=== PATIENT | female | born 1970 | race Caucasian/White ===

== ENCOUNTER 2019-11-12 19:44 | Emergency (ER) | payer BC, SELFPAY ==
--- NOTE | 2019-11-12 20:14 | ED_ITS ---
[facility] [place] Clinical Impression: Exposure to COVID-19 virus Disposition: Home, Self-Care Condition on Discharge: Good Instructions: Preventing the Spread of Coronavirus Discharge Instructions Additional Instructions: You have been tested for COVID19. These results typically take around 24 hours. Please isolate yourself as if you are positive until results are back. Referrals: Santiago Copeland DO [Primary Care Provider] - Time of Disposition: 20:24 Medical Decision Making - Josh Inquiry Pt receiving controlled substance: No [facility] [place] - General Stated complaint: Covid testing Time Seen by Provider: 11/12/19 20:14 - History of Present Illness Provider Complaint: Father has COVID19. She needs to be tested. She denies fever, ear pain, sore throat, congestion, cough, SOA, nausea, vomiting or diarrhea. Onset (ago): day(s) (1) Relieving factors: none Exacerbating factors: none Associated symptoms: denies other symptoms Treatments prior to arrival: none [facility] History - Hepatitis A Screen Attestation statement:: This patient has been screened for Hepatitis A risk factors. I have reviewed the patient's past medical history: Yes ROS Obtained: Yes All systems reviewed & no additional complaints - Constitutional Constitutional: Denies body ache, Denies chills, Denies fatigue, Denies fever(s) , Denies lethargy, Denies malaise - Eyes Eyes: Denies eye discharge - ENT Ears, Nose, Mouth, and Throat: Denies dizziness, Denies otalgia, Denies sinus pressure, Denies sore throat - Respiratory Respiratory: No cough, No dyspnea - Gastrointestinal Gastrointestingal: Denies: loose stools, vomiting Physical Exam - General General appearance: alert, in no apparent distress - Head Head exam: atraumatic, normocephalic - Eye Eye exam: Present: PERRL - ENT ENT exam: Present: normal oropharynx, TM's normal bilaterally - Neck Neck exam: Absent: lymphadenopathy - Chest Chest inspection: Present: normal inspection, symmetric chest wall rise - Respiratory Respiratory exam: Present: normal lung sounds bilaterally - Cardiovascular Cardiovascular exam: Present: regular rate, normal rhythm - Abdominal Exam Abdominal exam: Present: soft - Neurological Exam Neurological exam: Present: alert, oriented X3 - Psychiatric Psychiatric exam: Present: normal affect, normal mood - Skin Skin exam: Present: warm, dry, intact
[2019-11-12 20:17] VITALS: BMI 58.7
[2019-11-12 20:26] VITALS: BP 170/81; PULSE 67; RESP 16; TEMP 36.7; O2SAT 98; BMI 60.2
[2019-11-12 20:47] VITALS: BP 170/81; PULSE 67; RESP 16; TEMP 36.7; O2SAT 98
== END 2019-11-12 20:58 | disposition home or self-care (01) ==
PROVIDERS: Emergency Provider Physician Assistant; PCP Family Medicine
DX: Z20.828 Contact with and (suspected) exposure to other viral communicable diseases (principal)
CPT/HCPCS: 99201; U0003

== ENCOUNTER 2023-10-14 15:32 | Emergency (ER) | payer BC, SELFPAY ==
[2023-10-14 15:40] VITALS: BP 131/80; PULSE 75; RESP 18; TEMP 37.2; O2SAT 97; BMI 45.4
[2023-10-14 16:00] VITALS: BP 134/82; BP 146/92; PULSE 72; PULSE 87
--- NOTE | 2023-10-14 16:16 | EXP.UTC ---
Discharge Plan Disposition Patient Disposition: Home, Self-Care Condition: Good Prescriptions Prescriptions: New amoxicillin 875 mg tablet 875 mg PO Q12H Qty: 20 0RF meclizine 25 mg tablet 25 mg PO QID PRN (Reason: dizziness) Qty: 30 0RF No Action lamotrigine 200 mg tablet 200 mg PO BID Patient Comments: TAKE 1 TABLET BY MOUTH TWICE DAILY oxcarbazepine 300 mg tablet 300 mg PO DAILY fluoxetine 20 mg capsule 20 mg PO BID Patient Comments: TAKE 1 CAPSULE BY MOUTH TWICE DAILY amitriptyline 100 mg tablet 100 mg PO DAILY Patient Comments: TAKE 1 TABLET BY MOUTH ONCE DAILY rosuvastatin 20 mg tablet 20 mg PO DAILY Patient Comments: TAKE 1 TABLET BY MOUTH ONCE DAILY AT BEDTIME Vivitrol 380 mg suspension,extended rel recon See Rx Instructions .ROUTE .COMPLEX Patient Comments: Inject 380 mg every 4 weeks by intramuscular route for 28 days. Rx Instructions: Inject 380 mg every 4 weeks by intramuscular route for 28 days. Skyrizi 360 mg/2.4 mL (150 mg/mL) wearable injector See Rx Instructions .ROUTE .COMPLEX Rx Instructions: see rx instructions rizatriptan 10 mg tablet See Rx Instructions .ROUTE .COMPLEX Rx Instructions: see rx instruction Referrals Follow up/Referrals: Liss Chou APRN [Primary Care Provider] - See instructions Activity Restrictions/Add. Instructions Additional Instructions/Restrictions: Drink plenty of fluids. Take tylenol or ibuprofen for pain or fever. Take the medications as directed. The meclizine (antivert) will make you drowsy, so don't drive or operate heavy machinery after taking it. Follow up with your regular doctor. GO TO THE ER FOR ANY WORSENING SYMPTOMS Clinical Impressions Clinical Impression: Benign paroxysmal positional vertigo Instructions Patient Instructions: Benign Paroxysmal Positional Vertigo, Meclizine, Amoxicillin, How to Perform Rashid Maneuver Discharge ED Provider: Ac Vasquez [facility] [place] General Stated complaint: Vertigo Mode of Arrival: Ambulatory Source of Information: Patient Limitations: No Limitations Time Seen by Provider: 10/14/23 15:58 Description of Symptoms (Recalled from Triage Doc. by RN): Pt's symptoms are she has been dizzy since 10/12/2023. HEENT Symptoms (Recalled from RN notes): Yes Resp Symptoms (Recalled from RN notes): No Skin Symptoms (Recalled from RN notes): No MS Symptoms (Recalled from RN notes): No Functional Status (Recalled from RN notes): n/a History of Present Illness Provider Complaint: She states that for the past 2 days she has had intermittent dizziness that is triggered by certain turns of her head. She has also had bilateral ear pain and pressure. Related Data Home Medications Medication Instructions Recorded Confirmed amitriptyline 100 mg tablet 100 mg PO DAILY 10/14/23 10/14/23 fluoxetine 20 mg capsule 20 mg PO BID 10/14/23 10/14/23 lamotrigine 200 mg tablet 200 mg PO BID 10/14/23 10/14/23 naltrexone microspheres 380 mg See Rx Instructions .Route .COMPLEX 10/14/23 10/14/23 intramuscular suspension,extended release (Vivitrol) oxcarbazepine 300 mg tablet 300 mg PO DAILY 10/14/23 10/14/23 risankizumab-rzaa 360 mg/2.4 mL See Rx Instructions .Route .COMPLEX 10/14/23 10/14/23 (150 mg/mL) subcut wearable injector (Skyrizi) rizatriptan 10 mg tablet See Rx Instructions .Route .COMPLEX 10/14/23 10/14/23 rosuvastatin 20 mg tablet 20 mg PO DAILY 10/14/23 10/14/23 Previous Rx's Medication Instructions Recorded amoxicillin 875 mg tablet 875 mg PO Q12H #20 tabs 10/14/23 meclizine 25 mg tablet 25 mg PO QID PRN dizziness #30 tabs 10/14/23 Allergies Allergy/AdvReac Type Severity Reaction Status Date / Time sulfamethoxazole Allergy Verified 10/14/23 15:50 [From Bactrim] trimethoprim [From Bactrim] Allergy Verified 10/14/23 15:50 Worker's Comp Is this a Worker's Comp case?: No [facility] Disclaimer: The information contained in this section may have been updated after the patient was seen, as this information can be updated by other users. Social History Smoking Status: Never smoker alcohol intake: never current occupational status: other Travel in the last 8 weeks: None ROS Obtained: Yes All systems reviewed & no additional complaints except as documented Constitutional Constitutional: Denies chills, Reports fever(s) and Reports poor appetite Eyes Eyes: Denies eye discharge ENT Ears, Nose, Mouth, and Throat: Reports dizziness, Denies ear discharge, Reports otalgia, Denies hearing loss, Denies sinus pain and Reports sore throat Cardiovascular Cardiovascular: Denies chest pain and Denies dyspnea Respiratory Respiratory: Denies chest congestion, Reports cough and Denies dyspnea Gastrointestinal Gastrointestingal: Denies abdominal pain, diarrhea, nausea or vomiting Musculoskeletal Musculoskeletal: Denies arthralgias Integumentary/Breasts Skin/Breast: Denies rash Neurologic Neurologic: Reports dizziness Physical Exam General General appearance: alert and in no apparent distress Head Head exam: atraumatic, normocephalic and normal inspection Eye Eye exam: Present normal appearance; Absent PERRL or EOMI ENT ENT exam: Present mucous membranes moist and normal external ear exam Expanded ENT Exam TM/Canal exam: Bilateral TM: erythema, bulging and effusion Nose exam: Absent sinus tenderness Nasal speculum exam: Bilateral: normal Mouth exam: Present normal external inspection and other; Absent drooling Teeth exam: Present normal inspection Throat exam: Present tonsillar erythema and tonsillomegaly Neck Neck exam: Present normal inspection, full ROM and trachea midline; Absent tenderness, meningismus or lymphadenopathy Chest Chest inspection: Present normal inspection and symmetric chest wall rise; Absent tenderness Respiratory Respiratory exam: Present normal lung sounds bilaterally; Absent respiratory distress, wheezes or stridor Cardiovascular Cardiovascular exam: Present regular rate, normal rhythm and normal heart sounds; Absent tachycardia or irregular rhythm Abdominal Exam Abdominal exam: Present soft and normal bowel sounds; Absent distention, tenderness, guarding, rebound or rigidity Extremities Exam Extremities exam: Present normal inspection and normal capillary refill; Absent tenderness, joint swelling or calf tenderness Back Exam Back exam: Present normal inspection and full ROM; Absent tenderness, CVA tenderness (R) or CVA tenderness (L) Neurological Exam Neurological exam: Present alert, oriented X3, CN II-XII intact, normal gait and reflexes normal; Absent motor sensory deficit Psychiatric Psychiatric exam: Present normal affect and normal mood Skin Skin exam: Present warm, dry, intact and normal color Lymphatic Lymphatic Findings: no adenopathy Medical Decision Making Medical Records Medical records reviewed: No I reviewed the patient's medical records. Josh Inquiry Pt receiving controlled substance: No Vital Signs: 10/14/23 15:40 10/14/23 16:00 Temperature 99.0 F Temperature Source Oral Pulse Rate [Orthostatic Sitting Right Radial] 72 Pulse Rate [Orthostatic Standing Right Radial] 87 Pulse Rate [Right Radial] 75 Respiratory Rate 18 Blood Pressure [Orthostatic Sitting Right Arm] 134/82 Blood Pressure [Orthostatic Standing Right Arm] 146/92 H Blood Pressure [Right Arm] 131/80 Blood Pressure Mean [Right Arm] 97 Blood Pressure Source [Right Arm] Automatic Cuff Blood Pressure Position [Right Arm] Sitting 02 Sat by Pulse Oximetry 97 Oxygen Delivery Method Room Air
[2023-10-14 16:42] VITALS: BP 131/80; PULSE 75; RESP 18; TEMP 37.2; O2SAT 97
== END 2023-10-14 16:42 | disposition home or self-care (01) ==
PROVIDERS: Emergency Provider Nurse Practitioner Family; PCP Family Medicine
DX: H81.10 Benign paroxysmal vertigo, unspecified ear (principal); H92.03 Otalgia, bilateral
CPT/HCPCS: 99204; 99212; G0463

== ENCOUNTER 2024-09-07 00:37 | Emergency (ER) | payer BC, SELFPAY ==
[2024-09-07] VITALS (7 sets, daily range): BP systolic 134–176; BP diastolic 59–88; PULSE 83–95; RESP 16; TEMP 36.6–36.7; O2SAT 95–100; BMI 34.4
--- OUTSIDE RECORDS SUMMARY | 2024-09-07 00:47 | XMS_ITS | Data Portability ---
Author Organization [facility] [place] Phelps [place] CLOSED Address [address] [place] [address] Care Team Providers Care Seo Manager Name Role Phone RADHA SIMPSON Educational Aide VEDA ARRIETA Cottage Attendant MAYO MERCHANT Soa Integration Architect YUKI NEWTON Primary Care Provider RADHA DAVENPORT Primary Care Provider [phone] Assessment Encounter Date Assessment Date Assessment LastModified by Organization Details LastModified Time 05/15/2024 05/15/2024 f/up 6 months [email or web address] Not available 05/15/2024 09:11:03 06/13/2024 06/13/2024 Likely psoriatic arthritis and osteoarthritis. In the setting of psoriasis, Crohn's disease. Currently taking Rinvoq(managed by GI - Dr. Turcios), which seems to be helping Crohn's, psoriasis, and psoriatic arthritis. Stopped Skyrizi. On Otezla from Dermatology for psoriasis. If not helpful, can consider addition of other DMARD's such as Methotrexate, Leflunomide, Sulfasalazine -- which I do not think she needs at this time. Notable that she cannot take oral steroids. No history of inflammatory eye disease. No history of inflammatory back pain. I discussed with her that her knee pains also have osteoarthritis component given positive gel phenomenon. She had follow-up with Orthopedics (Dr. Rodgers). Had MRI right knee 01/2024; reviewed notes and reports. From rheumatologic standpoint, I do not have anything further to add to her care currently. Immunosuppression is being managed by GI and Dermatology. Will plan to see pt back as needed. Not available 06/13/2024 09:08:06 Plan of Treatment Reminders Order Date Submit Date Provider Last Modified By Organization Details Last Modified Time Details Appointments DERMATOLO GY VISIT 2024 09:45A M DILANPIPPA HERNANDEZ DO Not available Not available Not available RECHECK 2024 02:40P M BOBBY TURCIOS MD Not available Not available Not available DERMATOLO GY VISIT 2024 08:45A M DILAN HERNANDEZ DO Not available Not available Not available Lab None recorded. Referral None recorded. Procedures None recorded. Surgeries None recorded. Imaging None recorded. Medication Orders Otezla 30 mg tablet 2024 025 [email or web address] [facility], [facility] ([facility], [address] [place] [address], [phone], 05/15/2024 09:09:21 amitripty line 10 mg tablet [address] [facility] [address] [place], [address], 05/08/2024 14:57:52 Patient TargetsNo targets recorded. Patient Instructions Encounter Date Encounter Id Patient Instructions Last Modified By Organization Details Last Modified Time 05/15/2024 [id number] If any lesions change, or if any other new or symptomatic lesions occur, patient understands to return to the clinic for further evaluation Discussed sun precautions; SPF 30+ Not available 05/13/2024 08:15:31 08/26/2024 [id number] Will put in lace up brace and hinged knee with WBAT. Ice and elevate and no work for 4 weeks. cannot provide pain medicines as I am a PA but have requested she contact her PCP. Cannot take nsaids secondary to history of gastric bypass. [email or web address] Not available 08/26/2024 09:41:02 Reason for Referral None Reported. Results Created Date Observation Date Name Description Value Unit Range Abnormal Flag Note LastModifiedBy Organization Detail LastModifiedTime 06/14/19 25 06/13/2024 HEPAT IC (LIVE R) PANEL AST 44 U/L 0-32 high Not Available [facility] [address] [place] [address], [phone], 06/13/2024 09:57:06 06/14/19 25 06/13/2024 HEPAT IC (LIVE R) PANEL ALT 69 U/L 0-33 high Not Available [facility] [address] [place] [address], [phone], 06/13/2024 09:57:06 06/14/19 25 06/13/2024 HEPAT IC (LIVE R) PANEL alkaline phosphatase 88 U/L 30-121 normal Not Available [facility] [address] [place] [address], [address], 06/13/2024 09:57:06 06/14/19 25 06/13/2024 HEPAT IC (LIVE R) PANEL total protein 7.1 g/dL 6.4-8. 3 normal Not Available [facility] [address] [place] [address], [address], 06/13/2024 09:57:06 06/14/19 25 06/13/2024 HEPAT IC (LIVE R) PANEL albumin 4.5 g/dL 3.5-5. 2 normal Not Available [facility] [address] [place] [address], [phone], 06/13/2024 09:57:06 06/14/19 25 06/13/2024 HEPAT IC (LIVE R) PANEL bilirubin, total 0.3 mg/dL 0.1-1. 2 normal Not Available [facility] [address] [place] [address], [phone], 06/13/2024 09:57:06 06/14/19 25 06/13/2024 HEPAT IC (LIVE R) PANEL bilirubin, direct <0.2 mg/dL 0.0-0. 3 normal Not Available [facility] [address] [place] [address], [address], 06/13/2024 09:57:06 06/14/19 25 06/13/2024 HEPAT IC (LIVE R) PANEL bilirubin, indirect see below mg/dL _(flako c) 0.0-1. 0 normal Unabl e to calcu late Indir ect Bilir ubin. Not Available [facility] [address] [place], [address], 06/13/2024 09:57:06 04/23/19 25 04/23/2024 RF, small bowel , w/ contr ast PO [facility] [facility] [address] [place] [address] Patien t Name: LAMONTE ER R MITZI Patikavitha t : [birth year] Patien t Orderi ng Provid er: DANIEL TURCIOS EXAM DATE: 2024 EXAM: RF SMALL BOWEL CLINIC AL INFORM ATION: Crohn' s diseas e TECHNI QUE: A solar project coordination specialist view of the abdome n was obtain ed. Entero vu suspen merary was given orally and serial overhe ad and compre ssion spot views of the abdome n were obtain ed. COMPAR RAYRAY: 2019 FINDIN GS: KUB ASSEMBLY INSPECTOR: The solar project coordination specialist view shows no abnorm al intest inal gas patter n or eviden ce of free air. DUODEN UM: Duoden al bulb and loop are normal in disten sibili ty, outlin e and mucosa l patter n. No mass or ulcer is seen. JEJUNU M: Normal in calibe r, course , positi on, fold thickn ess and fold patter n. No fillin g defect s, divert icula or ulcers are seen. ILEUM: Spot views of the termin al ileum region sugges t there is some mild narrow ing of the distal segmen t of the termin al ileum. No fistul a tract is noted. IMPRES MERARY: Mild spasm of the TI Interp reted By: Casimiro Serrano MD Electr onical ly Signed By: Casimiro Serrano MD on 025 10:08 AM [facility] [address] [place], [address], 04/23/2024 14:48:48 04/23/19 25 04/23/2024 MR, chola ngiop ancre atogr am, w/wo contr ast [facility] [address] [facility] [place] [address] Jerson monroe Name: LAMONTE monroe : [birth year] Patikavitha t Orderi ng Provid er: DNAIEL TURCIOS EXAM DATE: 2024 EXAM: MR ABDOME N W/WO CONTRA ST/ MRCP CLINIC AL INFORM ATION: Crohn' s diseas e. Elevat ed liver functi on tests TECHNI QUE: No POC testin g for eGFR was perfor med due to absenc e of risk factor s. Multip le axial T1 and T2 weight ed MR images of the upper abdome n were obtain ed along with MRCP images . Dynami c 3-D GRE images of the abdome n were obtain ed before and after inject ion of [address] (1 x 15 mL bottle of [facility] [address]9838- 325-03 ) IV. The jerson monroe did not requir e sedati on for this exam. This study follow s small bowel follow -throu gh COMPAR RAYRAY: MRI 022 FINDIN GS: MRCP: Intra and extrah epatic bile ducts are normal in calibe r withou t eviden ce of obstru ction or fillin g defect s. Gallbl adder is normal . Pancre atic duct is normal in calibe r and anatom y. No fillin g defect s are seen. LIVER AND PANCRE : Liver is normal in size, outlin e and signal intens ity. No obviou s focal lesion is seen. Pancre as is normal in size and outlin e. No masses noted. OTHER UPPER ABDOMI NAL ORGANS : Spleen , adrena ls and both kidney s are normal . No convin cing eviden ce of bowel wall thicke elsly or spasm is confir med on MRI. ABDOMI NAL WALL AND SKELET AL STRUCT URES: Normal IMPRES MERARY: 1. Normal MRCP. 2. No MR eviden ce of biliar y obstru ction or obviou s focal hepati c or pancre atic lesion s. Interp reted By: Casimiro Serrano MD Electr onical ly Signed By: Casimiro Serrano MD on 025 11:14 AM [facility] [address] [place], [address], 04/23/2024 14:48:48 04/23/19 25 04/23/2024 MRI, abdom en + pelvi s, w/wo contr ast [facility] [address] [place] [address] Patien t Name: LAMONTE MONTANEZ Patien t : [birth year] Patien t Orderi ng Provid er: DANIEL TURCIOS EXAM DATE: 2024 EXAM: MR ABDOME N/PELV IS W/WO CONTRA ST CLINIC AL INFORM ATION: The patien t did not requir e sedati on for this exam. TECHNI QUE: No POC testin g for eGFR was perfor med due to absenc e of risk factor s. Multip le axial T1 and T2 weight ed MR images of the abdome n and pelvis were obtain ed before and T1 weight ed MR images were obtain ed after inject ion of [address] (1 x 15 mL bottle of [facility] [id number] 325-03 ) IV. Imagin g was done in axial and ayala l planes . This study follow -up small bowel follow -throu gh. COMPAR RAYRAY: None FINDIN GS ON MR ABDOME N: LOWER THORAX : Lung bases are clear. No obviou s cardia c abnorm ality. UPPER ABDOMI NAL ORGANS : Liver, gallbl adder, spleen , pancre as, both adrena ls and kidney s are normal . BOWEL AND MESENT FELIPE: Stomac h, small bowel and colon are normal . No mesent brayan lympha denopa thy or perito kishan free fluid. No convin cing eviden ce of bowel wall thicke lesly or strict ure is detect ed. RETROP ERITON EUM: Aorta, IVC and their branch es are patent and normal . No retrop eriton eal lympha denopa thy. ABDOMI NAL WALL AND SKELET AL STRUCT URES: Normal . FINDIN GS ON MR PELVIS : PELVIC CAVITY : Urinar y bladde r and rectos igmoid are normal . . No pelvic or inguin al lympha denopa thy, mass or fluid. MUSCUL OSKELE PRAKASH STRUCT URES: Normal COMBIN ED IMPRES MERARY: No signif icant findin g. No mass, fluid collec tion, or bowel abnorm ality is detect ed Interp reted By: Casimiro Serrano MD Electr onical ly Signed By: Casimiro Serrano MD on 025 11:17 AM [facility] [address] [place], [address], 04/23/2024 14:48:48 05/14/1904/19/2024 esoph ageal manom etry (PROC ) No observ ation record ed. BARCODE [address], [address], 05/14/2024 11:23:10 Result Notes None recorded. 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 Procedures Surgical History Date Name Laterality Status Provider Name and Address Organization Details Recorded Time 024 OT Therapeutic Exercise completed RUTHIE VELASQUEZ JR, OTR/L, CHT [address] [place], [address], [facility] 12/26/2023 08:01:18 024 PT Hot/Cold Pack completed RUTHIE VELASQUEZ JR, OTR/L, CHT [address] [place], [address], [facility] 12/26/2023 08:01:18 024 OT Therapeutic Exercise completed RUTHIE VELASQUEZ JR, OTR/L, CHT [address] [place], [address], [facility] 12/13/2023 08:19:50 024 PT Hot/Cold Pack completed RUTHIE VELASQUEZ JR, OTR/L, CHT [address] [place], [address], [facility] 12/13/2023 08:02:25 024 Orthotic, WHO, Static Custom completed RUTHIE VELASQUEZ JR, OTR/L, CHT [address] [place], [address], [facility] 12/04/2023 14:18:42 024 OT Evaluation - Moderate complexity completed RUTHIE VELASQUEZ JR, OTR/L, CHT [address] [place], [address], [facility] 12/04/2023 14:18:27 024 OT Therapeutic Exercise completed RUTHIE VELASQUEZ JR, OTR/L, CHT [address] [place], [address], [facility] 12/04/2023 15:00:59 024 Op Note completed KELSEY VASQUEZ MD [address] [place], [address], [facility] 11/21/2023 12:52:53 024 PT Evaluation - Moderate Complexity cancelled TOMTERRENCE ROBERT WAITS, PT [address] [place], [address], [facility] 11/15/2023 09:36:27 024 PT Manual Therapy cancelled TOMTERRENCE CAZARESS, PT [address] [place], [address], [facility] 11/15/2023 09:36:27 024 PT Therapeutic Exercise cancelled TOMTERRENCE CAZARESS, PT [address] [place], [address], [facility] 11/15/2023 09:36:27 024 PT Evaluation - Moderate Complexity completed TOM CAZARESS, PT [address] [place], [address], [facility] 11/13/2023 07:14:16 024 PT Manual Therapy completed TOM CAZARESS, PT [address] [place], [address], [facility] 11/13/2023 08:15:38 024 PT Therapeutic Exercise completed TOM CAZARESS, PT [address] [place], [address], [facility] 11/13/2023 07:14:28 023 Shave Lesion; trunk, arm, leg completed DILMA LAY MD [address] [place], [address], [facility] 10/05/2022 17:36:13 022 OCT/Nerve completed VEDA ARRIETA MD [address] [place], [address], [facility] 12/09/2021 15:02:53 022 Visual Field Extended completed VEDA ARRIETA MD [address] [place] [address], [address], [facility] 06/09/2021 15:37:33 021 bariatric operative procedure completed Blanca Boyer [facility] 06/09/2021 15:28:52 021 OCT/Nerve completed VEDA ARRIETA MD [address] [place] [address], [address] [place] [address], [facility] 11/16/2020 09:34:56 021 Pachymetry completed VEDA ARRIETA MD [address] [place] [address], [address] [place] [address], [facility] 11/16/2020 09:35:00 020 Biopsy Liver, percutaneous completed NAN BISHOP MD [address] [place] [address], [address] [place] [address], [facility] 03/27/2020 15:54:17 Endometrial cryoablation completed Darshana Lagunas [facility] 08/27/2020 11:07:49 Hysterectomy/sandhya e vagina completed Darshana Lagunas [facility] 08/27/2020 11:07:57 cholecystectomy completed Darshanatiffany Lagunas [facility] 08/27/2020 11:08:09 Other completed Kena Perdomo [facility] 12/15/2023 12:46:39 laparoscopy completed MAYO MERCHANT MD [address] [place] [address], [address], [facility] 12/15/2023 13:10:10 Imaging Results None recorded. Procedure Notes None recorded. Medical Equipment None Reported. Allergies Allergen ID Allergen Name Allergen Category Reaction Reaction Severity Criticality Documentation Date Start Date Code Code System Note Provider Name and Address Organization Details Recorded Time 040689 metformin medicatio n diarrhea severe Not available 08/27/2020 6809 RxNorm Darshana Lagunas [facility] 11:10:32 842036 Bactrim medicatio n Not available Not available Not available 08/10/2021 59881 9 RxNorm Ranjana Harrisr [facility], [facility] 09:07:56 Medications Name Sig Start Date Stop Date Status Note LastModified by Organization Details LastModified Time Prescript ion - New 04/30 completed Not Available Not Available Not Available Prescript ion - Prior Authoriza tion Request active Not Available Not Available Not Available Remeron 30 mg tablet Take 1 tablet every day by oral route. active Not Available Not Available No t Available ondansetr on HCl 4 mg tablet TAKE 2 TABLETS BY MOUTH TWICE DAILY active Not Available Not Available No t Available betametha sone, augmented 0.05 % topical cream apply a thin layer to the affected areas on the body twice a day for up to a week with flares. 2023 active Not Available Not Available Not Avai lable Accu-Chek Softclix Lancets 2 times daily E11.8 active Not Available Not Available No t Available Zyrtec 10 mg tablet Daily 04/30 completed Frequenc y: daily;Me dication Descript ion: cetirizi ne; Dosage:1 ; Route:or al; refills: 5; Quantity :30 tablet Not Available Not Available Not Available hydrocodo ne 10 mg-acetam inophen 325 mg tablet TAKE 1/2 - 1 TABLET EVERY 6 HOURS NEEDED FOR SEVERE POST SURGICAL PAIN 12/03 completed Not Available Not Available Not Available omeprazol e 40 mg capsule,d elayed release Take 1 capsule every day by oral route for 30 days. 2024 active Not Available Not Available Not Avai lable Lotronex 1 mg tablet Take 1 tablet twice a day by oral route. 10/21 completed Not Available Not Available Not Available famotidin e 20 mg tablet Take 1 tablet twice a day by oral route for 30 days. 2024 active Not Available Not Available Not Avai lable amitripty line 10 mg tablet TAKE 2 TABLETS BY MOUTH ONCE DAILY AT BEDTIME 2024 active Not Available Not Available Not Avai lable hyoscyami ne sulfate 0.125 mg tablet Take 1 tablet twice a day by oral route as needed. 2023 active Not Available Not Available Not Avai lable omeprazol e 20 mg capsule,d elayed release Take 1 capsule every day by oral route. 09/05 completed pt now taking 40 mg Not Available Not Available Not Available Lamictal 150 mg tablet Two times a day active Duration : 10 days;Ramo quency: bid;Medi cation Descript ion: lamotrig ine; Route:or al; refills: 0; Quantity :60 tablet Not Available Not Available Not Available aspirin 81 mg tablet Daily 06/25 completed Duration : 30 days;Ramo quency: daily;Me dication Descript ion: aspirin; Dosage:1 ; Route:or al; refills: 0; Quantity :30 tablet Not Available Not Available Not Available gabapenti n 100 mg capsule TAKE 1 CAPSULE EVERY NIGHT BEFORE BED FOR 1 WEEK 12/03 completed Not Available Not Available Not Available clobetaso l 0.05 % topical ointment Apply to areas of psoriasi s on the feet every other day 08/21 completed Not Available Not Available Not Available budesonid e DR - ER 3 mg capsule,d elayed,ex tended release 11/03 completed Not Available Not Available Not Available Lomotil 2.5 mg-0.025 mg tablet Take 1 tablet twice a day by oral route as needed for 10 days. 11/03 completed Not Available Not Available Not Available Fioricet 50 mg-325 mg-40 mg tablet 04/30 completed Medicati on Descript ion: acetamin ophen/bu talbital /caffein e; Route:or al; refills: 0 Not Available Not Available Not Available alosetron 0.5 mg tablet 05/04 completed Not Available Not Available Not Available clobetaso l As Directed 08/22 completed Instruct ions: Apply to the affected areas twice a day for 2 weeks, then twice a week, if needed.; Frequenc y: as direct.; Medicati on Descript ion: clobetas ol topical; Dosage:a s directed ; Route:to pical; refills: 5; Quantity :60 ointment Not Available Not Available Not Available metformin 08/27 completed Not Available Not Available Not Available Trileptal active Not Available Not Lissette ilable Not Available rosuvasta tin 10 mg daily active Not Available Not Available No t Available Cymbalta 01/17 completed Medicati on Descript ion: duloxeti ne; Route:or al; refills: 0 Not Available Not Available Not Available cholestyr amine (bulk) bid 02/17 completed Not Available Not Available Not Available Seroquel 50 mg tablet Take 1 tablet every day by oral route. active Not Available Not Available No t Available Vivitrol 12/14 completed Not Available Not Available Not Available triamcino lone acetonide 0.147 mg/gram topical aerosol 10/21 completed Not Available Not Available Not Available Cholestyr amine Light 4 gram oral powder Take 4 g twice a day by oral route for 30 days. 05/04 completed Not Available Not Available Not Available Saphris 12/14 completed Not Available Not Available Not Available Stelara 90 mg/mL subcutane ous syringe Inject 1 mL every 2 months by subcutan eous route. 08/04 completed Not Available Not Available Not Available Suprep Bowel Prep Kit 17.5 gram-3.13 gram-1.6 gram oral solution DIRECTED 10/21 completed Not Available Not Available Not Available budesonid e DR-ER 9 mg tablet,de layed and extended release Take 1 tablet every day by oral route for 90 days. 07/24 completed Not Available Not Available Not Available Otezla 30 mg tablet active Not Available Not Available No t Available Jardiance 10 mg tablet Take 1 tablet every day by oral route in the morning for 14 days. 10/21 completed Not Available Not Available Not Available Jardiance 25 mg tablet takes 1 tablet every morning 12/09 completed Not Available Not Available Not Available Enstilar 0.005 %-0.064 % topical foam Apply to the affected areas of psoriasi s 3 times a week, as needed. 2021 active pt states not using this anymore Not Available Not Available Not Available Vraylar 3 mg capsule Take 1 capsule every day by oral route. active pt now taking 6mg Not Available Not Available Not Available Stelara 130 mg/26 mL intraveno us solution Inject 520 mg by intraven ous route. 08/04 completed INfusion date 08/10/19 Not Available Not Available Not Available Accu-Chek Guide test strips 2 times daily E11.8 2020 active Not Available Not Available Not Avai lable Tremfya 100 mg/mL subcutane ous syringe INJECT 1 SYRINGE UNDER THE SKIN EVERY 8 WEEKS. 08/09 completed Not Available Not Available Not Available Rinvoq 15 mg tablet,ex tended release TAKE ONE TABLET (15MG) BY MOUTH ONCE DAILY active Not Available Not Available No t Available Rinvoq 30 mg tablet,ex tended release Take 1 tablet(s ) every day by oral route 2024 active Not Available Not Available Not Avai lable Rinvoq 45 mg tablet,ex tended release active Not Available Not Available Not Available Skyrizi 360 mg/2.4 mL (150 mg/mL) subcutane ous wearable injector Inject 2.4 ml every 8 weeks (56 days) by subcutan eous route as directed 05/09 completed No longer effectiv e, failed Not Available Not Available Not Available Skyrizi 60 mg/mL intraveno us solution IV infusion of 600mg once every 4 weeks for a total of 3 infusion s. 08/04 completed Not Available Not Available Not Available Caplyta 21 mg capsule Take 1 capsule every day by oral route. active Not Available Not Available No t Available Suflave 178.7 gram-7.3 gram-0.5 gram oral solution DIRECTED 07/24 completed Not Available Not Available Not Available Voquezna 20 mg tablet Take 1 tablet every day by oral route. active Not Available Not Available No t Available Vitals Date Recorded Body height Body mass index (BMI) Body weight Respiratory rate Provider Name and Address Organization Details Last Updated DateTime 05/08/2024 170.18 cm 50.6 kg/m2 715246.74 g 16 /min [facility] 05/08/2024 14:42:52 Date Recorded Body height Body mass index (BMI) Body weight Respiratory rate Heart rate Oxygen saturation Oxygen saturation in Arterial blood by Pulse oximetry Systolic blood pressure Diastolic blood pressure Provider Name and Address Organization Details Last Updated DateTime 170.18 cm 51.1 kg/m2 916656. 51 g 16 /min 67 /min 98 % 98 % 136 mm[Hg] 82 mm[Hg] Lazara Alexander [facility] 08:13:31 Date Recorded Body height Body mass index (BMI) Body weight Respiratory rate Heart rate Oxygen saturation Oxygen saturation in Arterial blood by Pulse oximetry Systolic blood pressure Diastolic blood pressure Provider Name and Address Organization Details Last Updated DateTime 170.18 cm 50.3 kg/m2 272679. 25 g 16 /min 69 /min 96 % 96 % 120 mm[Hg] 70 mm[Hg] Jaclyn Montiel [facility] 16:00:09 Date Recorded Body height Body mass index (BMI) Body weight Provider Name and Address Organization Details Last Updated DateTime 08/26/2024 170.18 cm 50.3 kg/m2 691862.15 g Sebastian Polanco [facility] 08/26/2024 09:18:13 Social History Question Answer Notes LastModified by [employer] Details LastModified Time Tobacco Smoking Status Former Smoker QUIT 10 YRS AGO Blanca myles [facility] 11/16/2020 08:30:55 How Much Tobacco Do You Chew? None Information not available 08/27/2020 What Was The Date Of Your Most Recent Tobacco Screening? 06/13/2024 [email or web address] Information not available 06/13/2024 How Much Tobacco Do You Smoke? No Information not available 08/27/2020 How Many Years Have You Smoked Tobacco? 0 Information not available 08/27/2020 Sex: Unknown Functional Status Question Answer Note LastModified by [employer] Details LastModified Time What is your level of alcohol consumption? None [email or web address] Information not available 12/15/2023 Do you or have you ever used smokeless tobacco? Never used smokeless tobacco Information not available 08/27/2020 Do you or have you ever used e-cigarettes or vape? Never used electronic cigarettes Information not available 08/27/2020 Mental Status None recorded. Family History Relationship Description Onset Age of this Age Resolved Age Notes LastModified by Organization Details LastModified Time Father No current problems or disability [email or web address] Not available 04/25 14:46:36 Father Glaucoma [email or web address] Not availab le 11/16/2020 08:29:30 Father Cataract [email or web address] Not availab le 11/16/2020 08:30:27 Father Fibrosis of lung idiopa thic pulmon bety fibros is Not available 12/15/2023 13:09:47 Mother No current problems or disability [email or web address] Not available 04/25 14:46:36 Maternal Grandmother Cataract [email or web address] Not available 08:30:27 Unspecified Relation Diabetes mellitus [email or web address] Not available 2023 13:09:21 Medical History Condition Response Coronary Artery Disease N Other N Kidney Stones N Hyperthyroidism N Heart Arrhythmia N Blood Transfusion N Emphysema N COPD N Depression N Pneumonia N Venereal Disease N Persistent cough or throat clearing > 3 weeks N Anxiety Disorder Y Hemorrhoids N Autoimmune disease Y Arthritis Y Blood Clot N Acid Reflux (GERD) Y Cancer N Stroke N Melanoma N Hoarseness N Polio N Skin Cancer N Rheumatoid Arthritis N Headaches Y Kidney Disease N Inflammatory bowel disease Y Squamous Cell Carcinoma N Mental handicap N Ear or Hearing Problems N Whooping Cough N Gallbladder Disease N Kidney or Bladder Problems N Goiter N Acne N Skin Problems Y Smallpox N Pancreatic disease N Ulcers N Other Skin Condition Y Rheumatic Fever N Bleeding Disorder N Tuberculosis N Back Problems N Asthma N Sleep Disorder N GERD/Reflux N Hepatitis N Cirrhosis N Chicken Pox N Glasses/Contacts Y Thyroid Disease N Colon Cancer N Hernia N Glaucoma N Hypothyroidism N Lung Disease N Measles N Difficulty Swallowing N Diverticulitis/Diverticulosis N Anesthesia Complications N Varicose Veins N Hearing Loss N Mononucleosis N Serious Illness or Injuries N Radiation Therapy N Diphtheria N Bladder or Kidney Problems N Alcohol Overuse/Alcohol Abuse N High Cholesterol Y Liver Disease Y Allergies/Hayfever N Mumps N Thyroid Problems N GI Problems Y Anemia N Chest Pain Y Immune System Disorder N Colon Polyps Y Heart Attack (ID) N Diabetes N Seizures/Epilepsy N Scarlet Fever N Eye Trauma N Heart Murmur Y Double Vision N Eczema N Ocular trauma N Basal Cell Carcinoma N Bronchitis N Heart Disease N Hypertension N Gynecological HistoryNo gynecological history recorded. Obstetrics History GPAL:G 0 P 0 0 0 0 Immunizations Vaccine Type Date Status Note Provider Nam e and Address Organization Details Recorded Time COVID-19, mRNA, LNP-S, PF, 30 mcg/0.3 mL dose 07/01/2020 [facility] 09:01:09 COVID-19, mRNA, LNP-S, PF, 30 mcg/0.3 mL dose 07/29/2020 completed [facility] 02/17/2021 09:01:14 Past Encounters Encounter ID Performer Location Encounter Start Date Encounter Closed Date Diagnosis/Indication Diagnosis SNOMED-CT Code Diagnosis ICD10 Code Diagnosis Note [id number] DILAN HERNANDEZ DO [facility] [address] [place] [address] 04/25/2016 14:33:45 04/25/2016 15:22:51 Psoriasis vulgaris 786129831 L40.0 Psoriasisi mprovingmi ld to moderate of feet now, not symptomati c or painfulpt happy with current status. Concern over changing to a different biologic, as joints doing well. flaring on feet and ankles Discussed options r/a/b reviewed labs;marc l Stelara r/a/b discussed will inject Stelara every 10 weeks joint pain is stableStel gabo 90mg/mL SubQ injection into left abdomen pt tolerated well [facility]# [id number]- [id number] Lot# [id number] date: 09/2017 continue Stelara 90 mg - will move up to every 8 weeks discussed Otezla r/a/b Continue;O tezla 30 mg bid as directed Continue;c lobetasol ointment;a s directed- 2/3 time a week f/u 10 weeks Melanocytic nevus 468582 001 D22.9 inaabe too appearance reassuranc e will refer to at [facility] for removal if pt elects [id number] [facility] [place] [address] 07/11/2016 21:31:19 07/11/2016 21:31:19 [id number] DILAN HERNANDEZ DO [facility] [address] [place] [address] 07/18/2016 09:53:44 07/18/2016 12:06:36 Psoriasis vulgaris 890417801 L40.0 Psoriasisf laring on feet and anklesmild to moderate of feet now, not symptomati c or painfulpt happy with current status. Discussed options r/a/b Stelara r/a/b discussed will inject Stelara every 10 weeks joint pain is stableStel gabo 90mg/mL SubQ injection into right abdomen pt tolerated well discussed Otezla r/a/b Continue;O tezla 30 mg bid as directed Continue;c lobetasol ointment;a s directed- 2/3 time a week f/u 8-10 weeks also discussed could always try other biologics if continues to have flares tb screen up to dateplan for labs next visit [id number] DILAN HERNANDEZ [facility] [address] [place] [address] 09/26/2016 15:19:20 09/27/2016 14:53:38 Psoriasis 3880679 L40.9 mild flare but overall stable/imp rovedPsA- joints stable/no pain currently discussed with patient she can expose her feet to sunlight several times per week, will help psoriasis, as well as use with topical. discussed r/a/b of Stelara and Otezlano side effects reported from either medication injection into the left abdomen continue the otezla as directedto pical clobetasol prn flaresrevi ewed previous labstb skin test up to datecbc and cmp today f/u 3 months [id number] DILAN HERNANDEZ [facility] [address] [place] [address] 11/14/2016 15:31:25 11/15/2016 12:06:14 Psoriasis vulgaris 632566172 L40.0 Psoriasisf laring on feet and ankles onlyclear otherwsiep t happy with current status.tiago nts doing well Discussed options r/a/b Stelara r/a/b discussed will inject Stelara every 10 weeks joint pain is stableStel gabo 90mg/mL SubQ injection into left abdomen pt tolerated well discussed Otezla r/a/b Continue;O tezla 30 mg bid as directed Can use clobetasol ointment; as directed- 2/3 time a week f/u 2mosrecomm ended clobetasol use 2-3 times a week, as not using it now, if used it a few times a week, feet would likely be clear [id number] DILAN HERNANDEZ [facility] [address] [place] [address] 01/17/2017 15:18:06 01/18/2017 11:38:06 Psoriasis vulgaris 796140592 L40.0 Psoriasism ild on feet today onlyclear otherwsiep t happy with current status.tiago nts doing well on combo stelara and otezlahas flu shotreview ed labsup to date on tb screen Discussed options r/a/b Stelara r/a/b discussed will inject Stelara every 10 weeks joint pain is stableStel gabo 90mg/mL SubQ injection into left abdomen pt tolerated well discussed Otezla r/a/b Continue;O tezla 30 mg bid as directed Can use clobetasol ointment; as directed- 2/3 time a week f/u 3 mosrecomme nded clobetasol use 2-3 times a week, as not using it now, if used it a few times a week, feet would likely be more clear.will go back to q 12 weeks for now, see how she does History of immunosuppressive therapy 688515009 Z92.25 [id number] DILAN HERNANDEZ [facility] [address] [place] [address] 04/26/2017 13:45:40 04/27/2017 09:26:55 Psoriasis 1629671 L40.9 Stablemild on feet - not bothersome overall patient is happy with results of Stelara and Otezlano significan t joint pain reported on both medsprevio us psA was uncontroll ed discussed r/a/b of Stelara including black box warning and 5 year safety datadiscus sed r/a/b of Otezla - no side effectscon tinue clobetasol topicals as neededsub Q injection given right abdomenpat ient tolerated well labs today - cbc, cmp, hepatitis panel, Qtb f/u 3 months [id number] DILAN HERNANDEZ [facility] [address] [place] [address] 07/26/2017 15:12:54 07/27/2017 08:06:32 Psoriasis 3914815 L40.9 flaring on feet discussed options stelara is slowly losing effectiven ess for her discussed switching to Tremfya r/a/b of med, similar to Stelara, but no black box warning for malignancy this may also work for PsA, though not FDA approved for arthritis, yet, but in clinical trials. hold on Stelaracon tinue clobetasol topicals as needed discussed r/a/b of Tremfyasam ple given today, sq left abdomenlot -HAS55.AGe xp-2019n ar-38198-2 40-04 continue Otezla 30 mg biddoing well on tremfya multiple disease modifying agents, in combinatio n, increased medical complexity f/u 1 month History of immunosuppressive therapy 952381302 Z92.25 previous stelara now tremfya Psoriasis with arthropathy 28501830 L40.50 otelza [id number] DILAN HERNANDEZ [facility] [address] [place] [address] 08/22/2017 13:34:35 08/23/2017 09:01:50 Psoriasis 8359823 L40.9 mild flaring on feet stable, seems to be improving with Tremfya after 1st month. discussed r/a/b of Tremfyagiv en today, sq R abdomenND : 35295[address]- 01LOT : [id number] P 02/2019 continue Otezla 30 mg bid- working well for PsA for herdoing well on tremfya labs and tb screen up to datef/u 2 month History of immunosuppressive therapy 501615725 Z92.25 previous stelara now tremfya Psoriasis with arthropathy 02086471 L40.50 otezla [id number] DILAN HERNANDEZ [facility] [address] [place] [address] 10/26/2017 14:29:07 10/27/2017 08:24:38 Psoriasis 3545504 L40.9 improved significan tly on feet with tremfya pt happy with status discussed r/a/b of TremfyaRx given today, abdomen [facility]: [id number]- 01LOT : [id number] P 02/2019 continue Otezla 30 mg bid- working well for PsA for herdoing well on tremfya labs and tb screen up to date f/u 2 months for next injection History of immunosuppressive therapy 188400538 Z92.25 tremfya Psoriasis with arthropathy 22245061 L40.50 otezla [id number] DILAN HERNANDEZ [facility] [address] [place] [address] 12/21/2017 09:03:55 12/21/2017 14:29:37 Psoriasis 9149812 L40.9 improved significan tly on feet with tremfya pt happy with status discussed r/a/b of TremfyaRx given today, R abdomen ndc: 29300-188- 01 lot: [id number].AC.A exp: 03/2019 decrease otezla from BID to once a day working well for PsA for herdoing well on tremfya continue clobetasol 3x a weeklabs and tb screen up to date f/u 2 months for next injection discussed likely has some OA in hands, if worsens can refer to rheum History of immunosuppressive therapy 543797164 Z92.25 tremfya [id number] DILAN HERNANDEZ [facility] [address] [place] [address] 02/15/2018 09:10:18 02/16/2018 09:21:49 Psoriasis 4267539 L40.9 skin improved significan tly joints improved. small osteoma likely OA related on 5th digit discussed r/a/b of TremfyaRx given today, [place] nd: [address]- 01 lot: ies05.aa exp: 07/2019 1% increased risk of depression with otezladisc ontinue otezlaconc erned that increased anxiety could be secondary to Otezla?lucas mfya does not cause anxietyshe is seeing couselor and being medicated doing well on tremfyacon tinue clobetasol 3x a week prn flares f/u 2 months for next injectionp claudia for labs next visitup to date on tb screenwill need next visit History of immunosuppressive therapy 409401670 Z92.25 tremfya [id number] [facility] [address] [place] [address] 02/24/2018 09:55:41 02/24/2018 11:50:13 On examination - fluid -middle ear 842099775 H74.8X9 Exam findings unremarkab le except middle ear fluid bilaterall y. Patient advised to continue medication s as prescribed by previous urgent care visit, f/u with ENT for further evaluation of dizziness/ vertigo symptoms. Dizziness 044258557 R42 [id number] DO KIM [facility] [address] [place] [address] 04/17/2018 15:01:33 04/18/2018 08:09:17 Psoriasis 2757830 L40.9 well controlled overall mild flare on feet, (-) allyson likely mild flare due to stopping otezla does not appears otezla is reason for anxiety, as still having issue, but stable, and seeing counselor. COuld consider restating if flare does not subside. discussed r/a/b of Tremfyainj ection today right abdomen [facility]: [address]- 01 lot: ies06.af exp: 07/2019 doing well on tremfyacon tinue clobetasol 3x a week prn flares will continue to hold otezla, but if flare does not resolve, may restart either than, or could switch biologics, but will hold off for now, tremfya seems to be working well labs due todayqtb f/u 2 mos History of immunosuppressive therapy 408471513 Z92.25 tremfya [id number] DO [facility] [address] [place] [address] 06/21/2018 09:03:18 06/22/2018 08:16:59 Psoriasis 1628608 L40.9 mild flare on feet today overall stable off Otezla no psoriasis elsewhere full size sample of enstilar given today, along with a coupon card to see if she like the product before Rx sent it in. start daily for 2 weeks, then 2-3 times a week, if needed. tremfya injection [place]: [address]- 01 lot: IGS1G.AB exp: 09/2019 up to date on labs joints stable, doing well. reviewed labs f/u in 2m History of immunosuppressive therapy 977181038 Z92.25 tremfya [id number] DO [facility] [address] [place] [address] 08/21/2018 08:55:15 08/21/2018 12:41:17 Psoriasis 0462929 L40.9 mild flare on feet and L hand tremfya injection given today in R abdomen skin doing [place] well nd: [address]- 01 lot: IJS0D.AG exp: 12/2019 up to date on TB test and labs f/u in 2m [id number] DO KIM [facility] [address] [place] [address] 10/23/2018 09:22:42 10/23/2018 13:12:57 Psoriasis 7423434 L40.9 mild flare on feet and L hand otherwise clear today The patient had a Stelara in the office [facility] with her name on it from previous, as she recently switched from Stelara to Tremfya. The Stelara syringe was given to me by mistake for the injection. Stelara was injected today, instead of Tremfya. I told her the drugs are very similar, both block [place] 23, but Stelara also blocks [place] 12, she was on Stelara previously with no issue, but Tremfya was helping her more with joints. I told her that there isnt any harm in doing the Stelara today, but will go back to Tremfya in 8 weeks at the next injection. skin doing well joints doing well Stelara lot: [id number] exp: 01/2019 gave sample of taclonex solution to use on feet and hands as needed for flares reviewed labs tb screen up to date f/u in 2m Immunosupp ressive therapy 13645883 D84.9 Tremfya/St elara [id number] DO KIM [facility] [address] [place] [address] 12/25/2018 08:51:16 12/26/2018 08:30:59 Psoriasis 7733723 L40.9 mild flare on feet and L hand otherwise clear today increase in joint pain in the past 2 weeks, likely will resolve with tremfya injection Tremfya NDC: 26089-244- 01 lot: [email or web address].ak exp: 03/2020 right abdomen Enstilar foam is hard to keep on Start Kenalog aerosol spray, as directed f/u 2 mos Immunosupp ressive therapy 62049823 D84.9 Tremfya/St maddisonara Multiple skin tags 24794 7009 L91.8 location: bilateral axillae 40+ cleansed with alcohol anesthetiz ed with lido/epi removed with gradle polysporin and bandaid applied wound care instructio ns given No charge today, cosmetic. I removed these no charge. fdc pt. [id number] DILAN HERNANDEZ DO [facility] [address] [place] [address] 02/27/2019 09:45:31 02/27/2019 13:14:11 Psoriasis 2456519 L40.9 mild flare on feet and L hand otherwise clear today Tremfya Ndc: 48516-659- 01 lot: [id number].AI exp: 03/2020 given into R abdomen tremfya is working very well for her joints, much better than stelara continue Kenalog aerosol spray, as directed reviewed labs will do labs and qtb in Apr, she will be due at that time. f/u 2 mos Immunosupp ressive therapy 75077025 D84.9 Tremfya Multiple b enign melanocytic nevi 650587592 D22.9 no changes monitor Psoriatic arthritis 1563 68407 L40.50 tremfya working well [id number] DILAN HERNANDEZ [facility] [address] [place] [address] 04/30/2019 08:43:04 04/30/2019 15:14:11 Psoriasis 7194003 L40.9 mild flare on feet and L hand otherwise clear today Tremfya Ndc: 21590-864- 01 lot: [id number].AD exp: 06/2020 given into left abdomen tremfya is working very well for her joints, much better than narendra gave samples of Duobrii to use every other night- she can alternate with Kenalog spray continue Kenalog aerosol spray, as directed reviewed labs labs and qtb due f/u 2 mos Immunosupp ressive therapy 15739613 D84.9 Tremfya Psoriatic arthritis 1563 88377 L40.50 tremfya working well [id number] DILAN HERNANDEZ [facility] [address] [place] [address] 07/16/2019 14:29:52 07/16/2019 16:09:02 Psoriasis 5522587 L40.9 FLARING ON FEET pt 2 weeks late for injection discussed options Pt want to proceed with injection to avoid severe flare injected tremfya today, abdomen duobrii samples given again- she finds this helpful she also has kenalog spray for flares reviewed labs tb screen up to date f/u 2 mos Immunosupp ressive therapy 73305414 D84.9 Tremfya Psoriatic arthritis 1563 50770 L40.50 starting to flare as tremfya injection is 2 weeks late [id number] DILAN HERNANDEZ [facility] [address] [place] [address] 09/16/2019 15:14:34 09/17/2019 08:55:45 Psoriasis 6647920 L40.9 flaring on feet discussed options She was late for last injection pt wants to continue Tremfya for now revisit 8 weeks tremfya 100mg/mL [facility]: [address]- 01 lot: IJS0E.AA exp: 12/2019 labs stable tb screen up to date pt has kenalog spray, duobrii, and enstilar foam at home if feet still flaring in couple weeks, call and I can send in a different topical f/u in 2m Raised bobbi orrheic keratosis [id number] 91915 L82.1 benign reassured R antecubita l [id number] DILAN HERNANDEZ [facility] [address] [place] [address] 11/11/2019 15:20:09 11/12/2019 08:16:49 Psoriasis 7574804 L40.9 flaring on feet/shins only discussed options continues to improved, less than last visit discussed also [place] Kenalog, pt declines today tremfya 100mg/mL ndc: 75461-155- 01 lot:jjsop. ak exp: R abd- injected subq today labs due today, scheduled @ 1620 tb screen up to date until 04/2020 pt has kenalog spray, duobrii, and enstilar foam at home She would enstillar foam refilled f/u in 2m History of immunosuppressive therapy 320935233 Z92.25 tremfya [id number] DILAN HERNANDEZ [facility] [address] [place] [address] 01/06/2020 15:21:14 01/06/2020 16:25:11 Psoriasis 8837849 L40.9 clearing mild flare on lateral ankles only today offered [place] Kenalog, pt declined Tremfya - left abdomen NCD:48227- 640-01 Lot: [id number] Exp: 01/08/2021 gave samples of Cerave psoriasis cream to use on the areas nightly continue Enstilar as needed f/u in 2m reviewed labs with pt mild elevation in LFTs no increase in weight some increase in drinking wine- could also be the cause, recommende d to keep to minimum. will plan to recheck in Apr with tb screen History of immunosuppressive therapy 930982217 Z92.25 tremfya [id number] BOBBY TURCIOS MD [facility] [address] [facility], [address] [place] [address] 02/13/2020 09:52:57 02/13/2020 15:01:46 Chronic diarrhea 832155090 K52.9 increase cholestyra mine to bid Family his tory of cancer of colon 674622358 Z80.0 Incontinence of feces 72 939601 R15.9 [id number] BOBBY TURCIOS MD SURGERY SCHEDULE [address] [place] [address] 02/21/2020 10:56:56 02/21/2020 11:03:23 [id number] DILAN HERNANDEZ [facility] [address] [place] [address] 02/28/2020 08:02:34 02/28/2020 08:50:48 Psoriasis 1854199 L40.9 clear Tremfya - left abdomen ndc: 69780-926- 01 lot: [id number].AA exp: 08/08/2020 continue Enstilar as needed qtb due next visit reviewed labs pt seeing GI for elevated LFT, has US scheduled possibly statin as it is new for pt? as well as fatty liver disease covid precaution s wash hands, wear mask, social distance f/u in 2m History of immunosuppressive therapy 098317069 Z92.25 tremfya Liver enzy mes level above reference range 365599804 R74.01 being evaluated by GI. [id number] BOBBY TURCIOS MD GASTR[facility] [address] [facility] [address] [place] [address] 03/12/2020 09:11:32 03/12/2020 13:59:43 Diarrhea 52488770 R19.7 R15.9 Z80.0 cholesytra mine bid metamucil 1tbsp daily sbft capsule Liver enzy mes level above reference range 637402578 R74.01 fatty liver Splenomegaly 42057798 R1 6.1 possible cirrhosis Stool finding 708320403 R19.5 calprotect in elevated [id number] NAN BISHOP MD SURGERY SCHEDULE [address] [place] [address] 03/23/2020 07:36:38 03/23/2020 07:37:05 [id number] BOBBY TURCIOS MD GASTRO [address] [facility] [address] [place] [address] 04/16/2020 07:45:14 04/22/2020 11:11:32 [id number] DILAN HERNANDEZ [facility] [address] [place] [address] 04/28/2020 15:03:54 04/28/2020 16:08:47 Psoriasis 3573306 L40.9 mild flare/exac erbation of chronic psoriasis on feet/ankle , otherwise clear Tremfya - Right abdomen ndc: 24[address]48- 01 lot: [id number].AB exp: 12/2020 reviewed labs up to date continue Enstilar as needed she did not need rx at this time qtb due next visit. If LFT not repeated again by GI in that time, will repeat at next visit reviewed labs otherwise good covid precaution s wash hands, wear mask, social distance send in moncho pt unsure on refill status ok to get covid vaccine f/u in 2m Non-alcoho lic fatty liver 239420877 K76.0 evaluated by GI pt has CT also scheduled [id number] BOBBY TURCIOS MD [facility]STR[facility] [address] [facility], [address] [place] [address] 06/04/2020 09:23:05 06/04/2020 15:41:43 Irritable bowel syndrome with diarrhea 866895529 K58.0 dicussed risks and benefits/d iscussed its history and the prior assoc with IC stop if develops constipati on rtc 1 mo Non-alcoho lic fatty liver 636996353 K76.0 with moderate fibrosis check cbc, inr, cmp Diarrhea 32206641 R19.7 R79.82 C-reactive protein above reference range 9124953482 30697 R79.82 and elevated calprotect in ct enterograp hy at [id number] DILAN HERNANDEZ DO [facility] [address] [place] [address] 06/25/2020 08:33:59 06/25/2020 11:05:41 Psoriasis 5960689 L40.9 mild today feet otherwise clear Tremfya - [place]: [id number]- 01 lot: [id number] exp: 12/2020 reviewed labs up to date continue Enstilar as needed she did not need rx at this time Pt will get qtb at next lab draw- she will call when she is having labs with GI reviewed labs at CT scan f/u in 2m Non-alcoho lic fatty liver 373332359 K76.0 evaluated by GI pt had CT done, reviewed Stable Labs reviewed from 06/11/2020 show labs are somewhat improved (LFTs) has f/u with GI on 07/15 [id number] BOBBY TURCIOS MD GASTRO [address] [facility], [address] [place] [address] 07/15/2020 10:50:09 07/15/2020 14:11:05 Chronic diarrhea 719256925 K52.9 R79.82 R19.5 Irritable bowel syndrome with diarrhea 959935648 K58.0 lotronex 1 bid dicussed risks and benefits/d iscussed its history and the prior assoc with IC stop if develops constipati on rtc 1 mo Non-alcoho lic fatty liver 517218228 K76.0 with moderate fibrosis/p ossible advanced based on imaging elevated blood sugar 238 -- endo consult mediterran andreas diet activity [id number] DILAN HERNANDEZ DO DERMATOLO [facility] [address] [place] [address] 08/27/2020 08:33:09 08/27/2020 09:27:35 Psoriasis 1635459 L40.9 mild today feet impoved from last visit otherwise clear Tremfya - Right abdomen [facility]: [address]- 01 lot: [id number] exp: 01/2021 reviewed labs tb screen is due she has upcoming labs. I put in that order. continue Enstilar as needed she will call when refll needed. f/u in 2m [id number] RADHA SIMPSON MD ENDOCRINO LOGY [address] [place] [address] 08/27/2020 10:57:19 08/27/2020 11:34:16 Uncontrolled type 2 diabetes mellitus 092743803 E11.65 A1c in the office today 7.8 up from 6.2 Random point-of-c are blood glucose elevated at 252 Goal A1c less than 7% I had a lengthy discussion with patient about the deleteriou s consequenc es of uncontroll ed hyperglyce alejandra in the form of microvascu lar complicati ons such as diabetic retinopath y, diabetic nephropath y, diabetic neuropathy and macrovascu lar complicati ons such as coronary artery disease, peripheral arterial disease and stroke. I had a lengthy discussion with patient about the importance of dietary carbohydra te consistenc y and restrictio n and not to exceed 45 g of carbohydra te per meal and 15-30 g per snack if needed. Provided with educationa l material about healthy diabetic diet. Recommenda tions: Start Jardiance 10 mg every a.m. before breakfast. Benefits and side effects including increased risk of genitourin bety tract infection including vaginal yeast infection, dehydratio n. Discussed with patient in detail. She verbalized understand ing and agreed Provided with a two-week free medical sample and saving coupon. Check blood glucose once daily. Provided with a blood glucose meter Accu-Chek guide in the office today Referral to [facility] ophthalmol kenzie for diabetic dilated eye exam 10 g monofilame nt testing is bilaterall y intact Urinary ACR Patient verbalized understand ing and agreed with the above mentioned plan of care. I would like to thank Dr. Turcios for the opportunit y to participat e in the care of this patient. [id number] BOBBY TURCIOS MD GASTRO [address] [facility], [address] [place] [address] 09/01/2020 13:03:52 09/01/2020 16:20:09 Diarrhea 49333565 R19.7 R79.82 Not getting better with IBS therapies CT of abdo men abnormal [id number] 1823801 R93.5 Colitis and ileitis on CT enterograp hy. Colonoscop y for further evaluation . Liver func tion tests outside reference range 420524843 R94.5 Non-alcoho lic fatty liver 267725281 K76.0 With advanced fibrosis, possible portal hypertensi on. Rising alkaline phosphatas e. Eval for biliary pathology. Body mass index 30+ - obesity 676191656 Z68.43 Considerin g gastric sleeve [id number] BOBBY TURCIOS MD SURGERY SCHEDULE [address] [place] [address] 1 09/16/2020 07:20:09 09/16/2020 07:20:37 [id number] ALEJANDRA PETTY APRN GASTRO [address] [facility], [address] 1 10/21/2020 13:16:22 10/21/2020 16:33:45 Diarrhea 37383647 R19.7 R63.4 [id number] DILAN HERNANDEZ DO DERMATOLO [facility] [address] [place] [address] 10/29/2020 08:50:52 10/29/2020 10:21:44 Psoriasis 9107796 L40.9 mild today feet improved from last visit- minimal today otherwise clear Tremfya - Right abdomen ndc: [address]34[address]- 01 lot: [id number] exp: 07/2021 reviewed labs , none needed today continue Enstilar as neededshe did not need any refills today Tremcarolya helping joints as well. She feels much improved Pt having gastric sleeve. She will let me know when that will be she will call when refll needed. f/u in 2m Immunosupp ressive therapy 46474231 D84.9 Tremfya [id number] BOBBY TURCIOS MD GASTRO [address] [facility], [address] [place] [address] 11/03/2020 14:18:30 11/06/2020 16:47:50 Crohn's disease of small intestine 27615731 K50.00 Diarrhea 60723432 R19.7 K52.9 Not getting better with IBS therapies Chronic liver disease 32 8152075 K76.9 [id number] VEDA ARRIETA MD OPHTHALMO [facility] [address] [place] [address] DR,[address] [place] [address] 5 11/16/2020 08:18:09 11/16/2020 16:21:47 Ocular hypertension 2653472 H40.053 mildly elevated iop but very healthy nervesoct nerve normal oudiscusse d risk reduction vs monitoring for changesrec heck 6 mo hvf, iop check. Type 2 kane betes mellitus without complication 111356620 E11.9 no reitnopath y ouI discussed diabetes with this patient. I discussed the importance of sugar control for reducing risk of diabetic complicati ons in the eyes. I recommened they follow up with their PCP/endocr inologist for continue sugar evaluation /managemen t. Also discussed importance of cardiovasc ular risk reduction. Call with changing/f luxuating vision. [id number] ONDINA CRISTOBAL APRN ENDOCRINO LOGY [address] [place] [address] 11/17/2020 08:41:16 11/18/2020 10:04:57 Type 2 diabetes mellitus 32972050 E11.8 Diabetes Type 2, with improved control.A1 C today is 6.7%.RECOM MENDATIONS :Congratul ated on improved glucose control.Di scussed the potential risks/comp lications associated with uncontroll ed diabetes. Check BG 1 x daily. MEDICATION INSTRUCTIO NS:She has some high readings which will likely improve because she just started a low carb diet and is having bariatric sleeve surgery in 2 weeks.No medication changes recommende d today.Cont inue Jardiance 25 mg daily.Hypo glycemia symptoms and treatment reviewed but explained that Jardiance (by itself) is not likely to cause hypoglycem ia. DIET: Encouraged patient to restrict carbohydra rad to less than 45 grams per meal and less than 15 grams per snack.EXER CISE: Encouraged 20-30 minutes of daily exercise.E DUCATION: Diabetic education /MNT - never attended DM education but is currently attending Nutrition counseling at [facility] Eye exam is up to date - 11/16/2020.U rine protein test is up to date - 11/02/2020 = negative.E ncouraged to wear good fitting shoes for protection of feet and to check feet daily.[place] al exam is up to date. Acknowledg ed understand ing of treatment plan. All questions answered.F olpaola up appointmen t in [address] Simpson Hyperlipidemia 01654046 E78.5 Continue rosuvastat in 10 mg daily per other provider. Diet and exercise discussed. Morbid obesity 552161049 E66.01 BMI 56.9Schedu led for bariatric surgery 12/01/2020. [id number] DILAN HERNANDEZ, DO DERMATOLO [facility] [address] [place] [address] 12/21/2020 15:01:13 12/22/2020 08:27:53 Psoriasis 9396241 L40.9 minimal todayimpro dedra otherwise clear Tremfya - Right abdomen [facility]: [address]- 01 lot: [id number] exp: 01/2022 continue Enstilar as neededUP TO DATE ON LABSshe did not need any refills today She is having some gastritis issues, possibly crohns clinically , per pt. She will let me know if any new meds are started, and I can see if any adjustment s or changes are needed for Tremfya, any potential med interactio ns, etc. Tremfya helping joints as well. She feels much improvedme dication monitoring and management discussed. TB screen up to date Pt having gastric sleeve, but not yet. Could be soon, she is not sure. There was issues with getting beds at hospital and covid she will call when refll needed. f/u in 2m Immunosupp ressive therapy 23485389 D84.9 Tremfya Pruritic disorder 320709 002 L29.9 chronicran dom areas, intermitte ntShe has had idiopathic elevated transamina sesreviewe d labsalso having significan t GI symptomswi ll check celiac panel- as DH related, with skin can cause itch.revrodríguez wed notes/lab- GI and EndoI will have her check labs [id number] RADHA SIMPSON MD ENDOCRINO LOGY [address] [place] [address] 02/17/2021 08:36:05 02/17/2021 09:16:34 Multiple complications due to type 2 diabetes mellitus 473619590 E11.8 A1c in the office today 5.4 from 6.7 Random point-of-c are blood glucose 125 Goal A1c less than 7% Commended patient on achieving and maintainin g goal glycemic control. 40 pounds weight loss from her highest weight. Recommenda tions: Continue current Jardiance 25 mg every a.m. before breakfast. Next office visit after 6 months if she maintains her A1c at goal we will consider to discontinu e therapy.Ch bobby blood glucose once daily. 10 g monofilame nt testing is bilaterall y intact Up-to-date with Urinary ACR Patient verbalized understand ing and agreed with the above mentioned plan of care. Obesity 433736765 E66.9 BMI of 53.4 and current weight of 34.1 Status post gastric sleeve in January 2021 Counseled about the importance of maintainin g lifestyle interventi ons Patient verbalized understand ing and agreed with the above mentioned plan of care. [id number] DILAN HERNANDEZ, DERMATOLO [facility] [address] [place] [address] 02/22/2021 14:50:49 02/22/2021 15:37:05 Psoriasis 1521565 L40.9 no flares todayimpro dedra clear Tremfya - [place] nd: [address]- 01 lot: [id number] exp: 03/2021 UP TO DATE ON LABSjoints are stable- feeling much better Has lost significan t weight after weight loss surgeryThi s went very well.Has follow up with GI scheduled on liver. TB screen up to dateEnstil ar as directed f/u in 2m Immunosupp ressive therapy 70118420 D84.9 Tremfya [id number] BOBBY TURCIOS MD GASTRO [address] [facility], [address] [place] [address] 04/13/2021 12:53:55 04/13/2021 19:16:40 Crohn's disease of small intestine 96158379 K50.00 This is the likely diagnosis now based on her clinical response to Entocort and her prior imaging indicating inflammati on of the ileum with wall enhancemen t. She is currently on tremfaya and has been on this for 2 years. She's been on other Biologics in the past for psoriatic arthritis Humira, Stelara, otezla. Consider Remicade. Continue Entocort at 9 mg a day for another 6 weeks, taper down to 6 mg once daily at that point. Follow-up in 3 months. Chronic liver disease 32 1630977 K76.9 Check serologies . Prior imaging suggested possible early cirrhosis. Prior biopsies showed advanced fibrosis.f atty liver History of bariatric surgical procedure 869623105 Z98.84 Sleeve January 2021 [id number] DILAN HERNANDEZ DO DERMATOLO [facility] [address] [place] [address] 04/26/2021 15:10:22 04/26/2021 16:23:54 Psoriasis 0520940 L40.9 no flares todayimpro dedra clearstabl e Tremfya - R abdomen [facility]: [address]- 01 lot: [id number] exp: 06/2021 UP TO DATE ON LABSjoints are stable- feeling much better Has lost significan t weight after weight loss surgeryHas not lost much in past few weeks, due to being on steroids for crohns. TB screen up to dateEnstil ar as directed- only if flares Discussed options with her.Stelar a is approved for psoriasis, PsA, and crohnsShe has improvemen t with skin with Stelara, but not clear. She did not think it helped much with joints or GI issues.Dis cussed the dosage of Stelara for Crohns is significan tly higher, and the intervals of injection are sooner. Higher and more frequent injections , may keep her PsO, PsA, and Crohns all under control.Hannah carrion would have to discuss that with her GI doc. I sent him a mssg as well about discussing with her today. Remicade is choice, but she felt her psoriasis did poorly on Humira, so another TNF may not be an option. f/u in 2m Immunosupp ressive therapy 10956408 D84.9 Tremfya Crohn's disease 06196181 K50.90 stable currently on steroidsDi scussed the dosage of Stelara for Crohns is significan tly higher, and the intervals of injection are sooner. Higher and more frequent injections , may keep her PsO, PsA, and Crohns all under control.Hannah carrion would have to discuss that with her GI doc. I sent him a mssg as well about discussing with her today. Remicade is choice, but she felt her psoriasis did poorly on Humira, so another TNF may not be an option. Psoriatic arthritis 1563 75176 L40.50 chronicsta bleno complaints currentlyT remfya injected todayStela ra may also be effective, if she goes that route for crohns. Especially at the higher dose and increase in intervals between injections . It was not significan tly helpful prior with Psoriasis dosing. [id number] VEDA ARRIETA MD OPHTHALMO LOG[facility] E[facility] [address] [place] [address] 06/09/2021 14:47:49 06/09/2021 16:10:40 Ocular hypertension 5560821 H40.053 iop better today - ? if has anythign to do with weight losshvf normalobs for now6 mo complete rnfl previous a/pmildly elevated iop but very healthy nervesoct nerve normal oudiscusse d risk reduction vs monitoring for changesrec heck 6 mo hvf, iop check. [id number] DILAN HERNANDEZ, DO DERMATOLO [facility] [address] [place] [address] 06/21/2021 15:28:07 06/21/2021 16:21:57 Psoriasis 3073264 L40.9 small minimal flare on left foot, otherwise clearimpro vedstable Tremfya - R abdomen [facility]: [address]- 01 lot: [id number] exp: 06/2021 UP TO DATE ON LABSjoints are stable- feeling much better Has lost significan t weight after weight loss surgeryHas not lost much in past few weeks, due to being on steroids for crohns. TB screen up to date- will be due in Isaura r as directed- only if flares Discussed options with her.She is going to talk with Dr Turcios next month about switching to Stelara to cover both crohns and psoriasis. Stelara is approved for psoriasis, PsA, and crohns Discussed the dosage of Stelara for Crohns is significan tly higher, and the intervals of injection are sooner. Higher and more frequent injections , may keep her PsO, PsA, and Crohns all under control.Hannah carrion would have to discuss that with her GI doc. I sent him a mssg as well about discussing with her previously . Remicade is choice, but she felt her psoriasis did poorly on Humira, so another TNF may not be an option. f/u in 2m Immunosupp ressive therapy 87181823 D84.9 Tremfya Crohn's disease 19560936 K50.90 chronicsta ble currently on steroidsHannah carrion knows cannot stay on steroid long termDiscus sed the dosage of Stelara for Crohns is significan tly higher, and the intervals of injection are sooner. Higher and more frequent injections , may keep her PsO, PsA, and Crohns all under control.Hannah carrion has upcoming appt [facility] GI Psoriatic arthritis 1008 [address]72 L40.50 chronicsta bleno complaints currentlyT remfya injected todayStela ra may also be effective [id number] BOBBY TURCIOS MD GASTRO [address] [facility], [address] [place] [address] 07/14/2021 15:58:24 07/15/2021 14:03:32 Crohn's disease of small intestine 70550584 K50.00 Taper off budesonide , do 3 mg once daily for 30 days then stop. Start stelara rtc 3 mos Chronic liver disease 32 3615457 K76.9 Check serologies . Prior imaging suggested possible early cirrhosis. Prior biopsies showed advanced fibrosis.f atty liverMRI in April with MRCP was normal. Did not show fatty liver or portal hypertensi on. Check CBC, CMP, CRP, B12, INR History of bariatric surgical procedure 155116086 Z98.84 Sleeve January 2021 Psoriasis 3431526 L40.9 she will stop tremfaya once on stelarawe both have discussed the upcoming changes with dr hernandez [id number] RADHA SIMPSON MD ENDOCRINO LOGY [address] [place] [address] 08/10/2021 08:32:15 08/10/2021 09:29:56 Multiple complications due to type 2 diabetes mellitus 104204835 E11.8 A1c in the office today down to 4.8 from 5.4 from 6.7 Random point-of-c are blood glucose 100 Goal A1c less than 7% Commended patient on achieving and maintainin g goal glycemic control. 40 pounds weight loss from her highest weight. Recommenda tions: Discontinu ed Jardiance 25 mg every a.m. before breakfast. She will check her blood glucose once daily upon awakening and at bedtime. Call our office his blood glucose is consistent ly above 130 upon awakening or above 180 at bedtime. 10 g monofilame nt testing is bilaterall y intact Urinary ACR Patient verbalized understand ing and agreed with the above mentioned plan of care. [id number] BOBBY TURCIOS MD GASTRO [address] [facility], [address] [place] [address] 11/03/2021 14:31:01 11/04/2021 06:55:02 Crohn's disease of small intestine 30853359 K50.00 Cont stelara. Chronic liver disease 32 6196996 K76.9 K50.90 R19.7 History of bariatric surgical procedure 001415378 Z98.84 Sleeve January 2021 [id number] VEDA ARRIETA MD OPHTHALMO [facility] [address] [place] [address] ,[address] [place] [address] 12/09/2021 13:14:49 12/09/2021 16:02:28 Ocular hypertension 8010078 H40.053 iop wnltodayrn fl normal and stable1 year rnfl previousio p better today - ? if has anythign to do with weight losshvf normalobs for now6 mo complete rnfl previous a/pmildly elevated iop but very healthy nervesoct nerve normal oudiscusse d risk reduction vs monitoring for changesrec heck 6 mo hvf, iop check. [id number] DILAN HERNANDEZ DO DERMATOLO [facility] [address] [place] [address] 01/10/2022 09:06:27 01/10/2022 11:46:04 Psoriasis vulgaris 551780206 L40.0 Psoriasisc lear pt happy with current status. joints doing well stelara, other than right kneeI could give her some samples of Otezla to take with Stelara, but she will hold off, concern of Diarrhea. She takes stelara also for IBD. has flu shotreview ed labsup to date on tb screen Discussed options r/a/b Stelara r/a/b discussed She is using GI dose, and doing well with skin. pt tolerated well does not need topical now, clear f/u 6 mos [id number] BOBBY TURCIOS MD GASTRO [address] [facility], [address] [place] [address] 05/04/2022 14:31:20 05/05/2022 08:28:06 Crohn's disease 09077863 K50.00 R19.7 Small bowel -- did not get good response to stelara -- switch to skyrizi. Diarrhea 46526792 R19.7 K52.9 Non-alcoho lic fatty liver 933511556 K76.0 With advanced fibrosis Psoriasis 7520308 L40.9 Acute pancreatitis 6007 K85.90 Though to be due to ozempic. [id number] BOBBY TURCIOS MD GASTRO [address] [facility], [address] [place] [address] 08/04/2022 14:42:48 08/04/2022 16:09:47 Right upper quadrant pain 915597492 R10.11 Acute pancreatitis 6007 K85.90 In Apr. Detailed pancreatic imaging with ct at this time. Crohn's disease 50214977 K50.00 R19.7 Small bowel -- diarrhea Is improving -- skyrizi. Diarrhea 14125117 R19.7 K52.9 Chronic liver disease 32 6693482 K76.9 R94.5 [id number] DILAN HERNANDEZ DO DERMATOLO [facility] [address] [place] [address] 08/11/2022 08:10:25 08/11/2022 08:42:29 Psoriasis vulgaris 792345483 L40.0 Psoriasisc lear pt happy with current status. Patient has d/c Stelara d Patient has started Skyrizi with infusions (for crohns) and will be doing home injections starting August 22. joints stable has flu shotreview ed labsCBC and CMP doing well but will order qtb today to keep her up to date. Discussed options r/a/b Discussed Otezla and if she should stay on it or not. Patient is going to try to d/c otezla and see if she still stays clear and joints remain stable. Patient will contact us if she flares or joints get worse. Skyrizi r/a/b discussedS he is using GI dose, and doing well with skin. pt tolerated well does not need topical now, clear tb screen due f/u 6 mos [id number] DILMA LAY MD DERMATOLO [facility] [address] [place] [address] 10/04/2022 14:42:10 10/04/2022 15:22:46 Lentiginosis 386800553 L81.4 reassuranc e Recommende d Equate Ultra Sunscreen 30+ and sun protecting hats/cloth ing Neoplasm o f uncertain behavior of skin 47146526 D48.5 ? LK r/o FLAKO upper chestshave removal and base destroyed with ED [id number] BOBBY TURCIOS MD GASTRO [address] [facility], [address] [place] [address] 02/08/2023 14:25:24 02/10/2023 11:39:33 Crohn's disease 34705073 K50.00 R19.7 Small bowel -- diarrhea Is improving -- skyrizi. will consider if interval can be shortened Diarrhea 56672743 R19.7 K52.9 Chronic liver disease 32 6924268 K76.9 R94.5 Elastograp hymild splenomega lybiopsy 2020 - moderate to advanced fibrosis [id number] DILAN HERNANDEZ DO DERMATOLO [facility] [address] [place] [address] 04/25/2023 10:34:32 04/25/2023 12:06:20 Psoriasis vulgaris 948410093 L40.0 Psoriasisc lear pt happy with current status. Patient has started Skyrizi with infusions (for crohns) and is doing home injections s joints stable Skyrizi r/a/b discussedS he is using GI dose, and doing well with skin. pt tolerated welldoes not need topical now, clear, no refills needed either. f/u 6 mos will order new tb test then [id number] BOBBY TURCIOS MD GASTRO [address] [facility], [address] [place] [address] 05/25/2023 14:55:20 05/25/2023 15:45:30 Crohn's disease 12420835 K50.00 R19.7 Small bowel -- diarrhea Is improving -- skyrizi. shorten interval to 6 weeks Diarrhea 18707714 R19.7 K52.9 Chronic liver disease 32 3884212 K76.9 R94.5 moderate fibrosis Right uppe r quadrant pain 905206186 R10.11 check labs todayrtc 4 mos [id number] BOBBY TURCIOS MD GASTRO [address] [facility], [address] [address] 09/28/2023 14:51:50 09/29/2023 07:45:14 Crohn's disease of small intestine 41181527 K50.00 Cont skyrizi. Epigastric pain 98047017 R10.13 Family his tory of cancer of colon 999593361 Z80.0 History of polyp of colon 964752666 Z86.010 [id number] DILAN HERNANDEZ, DERMATOLO [facility] [address] [place] [address] 11/01/2023 08:44:56 11/01/2023 09:29:35 Psoriasis vulgaris 169242996 L40.0 Psoriasism ostly clear1 patch on marcano pt happy with current status.Pat ient has started Skyrizi with infusions (for crohns) and is doing home injections sLabs are up to date Patient is experienci ng worsening joint painPatien t does [facility] nowDiscuss ed adding otezla backPatien t would like to restartsta rter pack given in office X [facility] [id number] [id number] 12/08/2024S cript sent to [facility] to assist with KANDY Torres r/a/b discussedS he is using GI dose,Avoid IL-17 biologics pt tolerated welldoes not need topical now, clear, no refills needed either. f/u 6 mos Arthritis 8447224 M19.90 chronicPat ient is experienci ng worsening joint painPatien t does have an appointmen t [facility] nowDiscuss ed adding otezla backPatien t would like to restartsta rter pack given in office X [facility] [id number] [id number] 12/08/2024S cript sent to [employer] to assist with KANDY Torres r/a/b discussedS he is using GI dose,Avoid IL-17 biologics pt tolerated welldoes not need topical now, clear, no refills needed either. f/u 6 mos [id number] FREDIS RODGERS MD ORTHOPEDI [facility] [address] [place] [address] 11/03/2023 08:42:41 11/03/2023 09:34:51 Osteoarthritis of knee [id number] M17.9 Reviewed x-ray findings of knee osteoarthr itis. Discussed overlying possibilit y of inflammato ry arthritis. Presented treatment options. She is currently been prescribed immune modulating medication s can use Tylenol and discussed with rheumatolo gy whether nonsteroid als are indicated. Continue to work on exercise as much as possible. Continue to work on weight loss is much as possible. Could consider intra-yordy cular injections . I described risks and benefits of corticoste roid injection to her including risk benefits and how the procedures performed. She is little bit apprehensi ve about considerin g injections would like to think about it. In the future she can come in if she would like to proceed with the injection Greater tr ochanteric pain syndrome of left lower limb [id number] M70.62 Reviewed findings of and causes of hip pain likely some combinatio n of greater trochanter ic pain syndrome and early hip OA. Reviewed photos and anatomy around the hip. Suggested trial of greater trochanter ic rehab program provided informatio nal handout and prescripti on for physical therapy. Bursal injections could be considered but given her body habitus I do not know if this can reasonably be performed. Lateral ep icondylitis of right humerus [id number] 64813 M77.11 Patient has a long history of recalcitra nt lateral epicondyli tis. She has failed nonsurgica l treatment including physical therapy use of tennis elbow strap home exercise program and either dry needling or possibly some type of ultrasonic tendon treatment without improvemen t and recurrence . She would like referral to elbow specialist . I have ordered an MRI to assess for tendinopat hy and tearing of the common extensor tendon will place referral to one of our elbow specialist for surgical consultati on Osteoarthritis of hip 23 [id number] M16.9 [id number] KELSEY VASQUEZ MD ORTHOPEDI [facility] [address] [place] [address] 11/10/2023 08:09:45 11/10/2023 08:36:07 Lateral epicondylitis of right humerus [id number] 47677 M77.11 Refractory to therapy injections , ultrasound , and has maximized medical treatment over a year, still has mildly tight upper traps. Advised right lateral condyle debridemen t, if required postop consider for proximal screen [id number] TOM WANG, PT PHYSICAL THERAPY / HAND THERAPY [address] [place] [address] 11/13/2023 08:00:08 11/14/2023 04:23:23 Greater trochanteric pain syndrome of left lower limb [id number] 5172298 M70.62 [id number] KELSEY VASQUEZ MD SURGERY SCHEDULE [address] [place] [address] 11/21/2023 10:41:58 11/21/2023 10:45:50 [id number] KELSEY VASQUEZ MD ORTHOPEDI [facility] [address] [place] [address] 12/04/2023 13:36:10 12/04/2023 14:11:00 Lateral epicondylitis of right humerus [id number] 99612 M77.11 Therapy, scapular stabilizat ion active range of motion wrist gauntlet splint modalities per therapist recommenda tion [id number] RUTHIE VELASQUEZ JR, OTR/L, CHT PHYSICAL THERAPY / HAND THERAPY [place] [address] [place] [address] 12/04/2023 14:14:24 12/07/2023 09:13:59 Lateral epicondylitis of right humerus 0434822430 40301 M77.11 [id number] RUTHIE VELASQUEZ JR, OTR/L, CHT PHYSICAL THERAPY / HAND THERAPY [place] [address] [place] [address] 6 12/13/2023 07:47:35 12/14/2023 04:53:57 Lateral epicondylitis of right humerus [id number] 08808 M77.11 [id number] MAYO MERCHANT MD RHEUMATOL [facility] [address] [place] [address] 12/15/2023 12:24:08 12/16/2023 04:12:36 Psoriatic arthritis 713683026 L40.50 Generalize d osteoarthritis 990537596 M15.9 [id number] RUTHIE VELASQUEZ JR, OTR/L, CHT PHYSICAL THERAPY / HAND THERAPY [place] [address] [place] [address] 12/26/2023 07:45:54 12/27/2023 04:42:43 Lateral epicondylitis of right humerus [id number] 57410 M77.11 [id number] RADHA HAGER PA-C OR[facility]ED[facility] [place] [address] [address] 01/08/2024 08:56:31 01/08/2024 09:19:26 Lateral epicondylitis of right humerus 0315468823 72784 M77.11 Some improvemen t status post surgery, still painful. Idiopathic osteoarthritis 341459843 M19.031 M19.032 Mild changes consistent with degenerati ve joint disease bilateral thumb [facility] joints [id number] BOBBY TURCIOS MD SURGERY SCHEDULE [address] [place] [address] 01/23/2024 11:07:13 01/23/2024 11:09:43 [id number] FREDIS RODGERS MD ORTHOPEDI [facility] [address] [place] [address] 01/25/2024 15:11:59 01/25/2024 16:29:38 Osteoarthritis of knee 668919119 M17.9 53-year-ol d female with progressiv e right knee pain. Worsening pain despite 3 months of nonsurgica l treatment including activity modificati on over-the-c ounter medication s assessment by rheumatkimi hayden including trial of OtezlaUsin g caneHeat ice and simple home exercises Recommend referral to physical therapy for gait and range of motion Recommend MRI assess for subchondra l insufficie ncy fracture, progressio n of arthritis and displaced meniscus tear Reviewed condition treatment plan and answered all question Tear of me niscus of knee [id number] S83.206A [id number] FREDIS RODGERS MD ORTHOPEDI [facility] [address] [place] [address] 01/29/2024 15:23:50 01/29/2024 16:00:26 Osteoarthritis of knee 501118102 M17.9 Reviewed condition with Marleni. Degenerati ve plus inflammato ry arthritis in the right knee moderate radiograph ic changes with meniscus tear Appears improving since last week. After reviewing all options continue nonsurgica l treatment. She will keep her scheduled therapy appointmen t. Use her cane. Focus on weight loss exercise program Does not want to consider injections because of fear of needles. Surgical options reviewed. Arthroscop ic meniscecto my could be considered but results would be uncertain and as she is already improving would not recommend Based on radiograph ic appearance of her arthritis likely will need knee replacemen t in the future Patient can return as needed or call with any question Tear of me niscus of knee [id number] S83.206A [id number] DILAN HERNANDEZ DO DERMATOLO [facility] [address] [place] [address] 02/16/2024 07:20:05 02/16/2024 09:08:00 Disorder of nail 80684729 L60.9 left great toe, right great toeheme under both toenails, growing outPt had been walking much more from 2 recent trips she had takenBenig n Reassuranc eThe blood under nails will grow out as the nail grows, and normal nail will continue to grow in behind it.f/u as scheduled Psoriasis 9409070 L40.9 chronicimp rovedstabl e skyrizi infusions, from GIUP TO DATE ON LABSjoints are stable- feeling much better TB screen up to date- will be due in MayEnstila r as directed- only if flares f/u in May, as [facility] [id number] RADHA HAGER PA-C ORTHOPEDI [facility] [address] [place] [address] 02/23/2024 08:27:18 02/23/2024 09:17:00 Lateral epicondylitis of right humerus [id number] 07003 M77.11 Doing well status post debridemen t right lateral epicondyle Possible early left medial epicondyli tis. [id number] BOBBY TURCIOS MD GASTRO [facility] [address] [place] [address], [place] [address] 02/19/2024 15:06:17 02/19/2024 16:02:02 Chest pain 80920981 R07.9 Diffuse sp asm of esophagus 77324379 K22.4 Liver func tion tests outside reference range 183406936 R94.5 K76.0 K74.02 Check testing now. Consider further biliary imaging in light of the symptoms [id number] BOBBY TURCIOS MD GASTRO [facility] [address] [place] [address], [place] [address] 03/20/2024 15:19:52 03/20/2024 16:42:16 Diarrhea 97444979 R19.7 stool testingcon static balancer budesonide consider crohns therapy change Nausea 172273635 R11.0 Crohn's disease 79633557 K50.00 Continue monitoring for infection through stool testing. Initiate amitriptyl ine as a potential therapeuti c measure for its dual role in alleviatin g pain and potentiall y reducing diarrhea. Consider the utility of rinvoq or entyvio as an alternativ e Crohn's medication should current symptoms persist. Discussion around the initiation of amitriptyl ine focused on its gradual dosing increases and expected timeline for efficacy. Atypical chest pain 1025 69206 R07.89 The patient will undergo esophageal manometry at to confirm esophageal spasms. Considerat ion for Botox injections as a therapeuti c interventi on contingent upon supportive manometry findings. Discontinu e omeprazole and famotidine after verificati on of their ineffectiv eness. Hyoscyamin e dosing may be increased up to three or four times daily as needed for symptomati c relief. and amitrip the pain is more epigas in nature as well History of bariatric surgical procedure [id number] Z98.84 sleeve Monitor and accommodat e dietary planning as necessary, taking into considerat ion altered gastrointe stinal physiology . Further evaluation s and interventi ons are planned to refine diagnostic understand ing and improve patient outcomes through a judicious approach incorporat ing imaging, experiment al medication trials, and procedural investigat ions. Re-evaluat ion and management adjustment s will follow based on diagnostic results and therapeuti c responses. Sleeve January 2021 [id number] BOBBY TURCIOS MD GASTRO [address] [facility], [address] [place] [address] 05/08/2024 14:12:49 05/09/2024 08:17:45 Epigastric pain 28473754 R10.13 Irritable bowel syndrome with diarrhea 278272372 K58.0 Crohn's di sease of small intestine 35471071 K50.00 Recent bowel symptoms are attributab le to her Crohn's disease at this point. Abnormal small bowel follow-thr ough. Improved slightly with oral steroids. Will change biologic therapy to rinvoq Diarrhea 09112100 R19.7 [id number] DILAN HERNANDEZ DO [facility] [address] [place] [address] 05/15/2024 08:33:01 05/15/2024 09:11:59 Psoriasis 9018465 L40.9 chroniccle ar pt is currently taking otezla 30mg take 1 tablet by mouth twice daily pt was just approved for rinvoq for crohns with GIoff SKyrizi, was was not helping GI issues UP TO DATE ON LABSjoints are stable TB screen up to date- will be due in Isaura r as directed- only if flares f/u 6 months Psoriasis vulgaris 500 L40.0 see abovef/u 6 mos [id number] MAYO MERCHANT MD RHEUMATOL OGY [address] [place] [address] 06/13/2024 08:04:06 06/14/2024 04:22:04 Psoriatic arthritis 368196841 L40.50 Generalize d osteoarthritis 460305372 M15.9 Psoriasis 1111277 L40.9 History of Crohns disease 2115490188 24785 Z87.19 [id number] BOBBY TURCIOS MD GASTRO [address] [facility], [address] [place] [address] 07/24/2024 15:43:39 07/25/2024 08:54:22 [id number] KANDY PEREIRA ORTHOPEDI [address] [place] [address] 08/26/2024 08:27:59 08/26/2024 10:01:00 Closed fracture of upper end of fibula 63414772 S82.812A Sprain of tibiofibular ligament of left ankle 3871314559 2717195 S93.432A Instabilit y of joint of left ankle 7132676851 068360 M25.372 Health Concerns Section Related Observation LastModified by Organization Detai ls LastModified Time None Recorded Concern Status LastModified by Organization Details LastModified Time None Recorded Advance Directives Directive None Recorded Payers Insurance Date Sequence Insurance Name Policy Number Policy Azul Covered Member ID Azul Member ID Guarantor Name 08/26/2024 1 [facility] [id number] 1 Marleni Montanez [id number] Marleni Montanez Notes Date Note Type Note Provider Name and Address Organization Details Recorded Time 05/08/2024 text/html The patient is a 53-year-old female presenting with complaints of epigastric pain and irritable bowel syndrome with diarrhea. She reports experiencing ongoing epigastric pain, which has become less intense during the day yet remains significant during sleep, causing the pain to become intense. The pain occasionally corresponds with shortness of breath, leading her to take shorter breaths due to its severity. Despite undergoing manometry, which revealed ineffective motility disorder and ineffective swallows, no spasticity or spasms were found to explain the persistent pain. In addition to pain, the patient has experienced increased bowel movements, with bowel movements occurring up to five times a day, including accidents during sleep. The symptoms associated with irritable bowel syndrome have not significantly improved with the use of budesonide. She previously had a response to this medication but notes diminished efficacy in the current course, acknowledging some bulking of stool but persistent symptoms. Due to the lack of significant improvement and continued issues with diarrhea, transitioning to Renvoke is considered. No significant alleviation of symptoms with omeprazole, famotidine, or amitriptyline has been noted to date. The patient also has a history of psoriatic arthritis, for which she takes Otezla but reports a lack of active skin flare-ups currently. For her bipolar disorder, she utilizes Seroquel, with adjustments being made to overlapping therapies as necessary. BOBBY TURCIOS MD [address] [place] [address], [address], [facility] 05/13/2024 14:48:10 05/15/2024 text/html Established Emely ent Presents for psoriasis recheck. Patient notes skyrizi was no longer working for patient. Patient saw and Patient was given Rinvoq 45mg for first 12 weeks then Rinvoq 30mg maintenance dose. Patient notes she hasn't started it yet as this was just approved by her insurance. Patient is currently just taking otezla. Denies any other new or changing lesions. Feels well today. Denies family history of malignant melanoma. DILAN HERNANDEZ DO [facility] [place], [address], [facility] 05/15/2024 17:29:07 06/13/2024 text/html Last seen 12/15/23 . Since last visit, she has stopped Skyrizi and been started on Rinvoq in April by GI for Crohn's. Remains on Otezla for psoriasis from Dermatology. She has seen Orthopedics for knee pain. Had MRI right knee that had showed complex meniscal tear, effusion, degenerative changes. Surgery was discussed, but she is holding off for now. Does not want to do injections. Reports arthritis in hands is doing better. Denies significant morning stiffness in hands.Denies vision changes, eye pain, eye redness.Feels like Crohn's is doing better with Rinvoq. From initial HPI 12/15/23:Referred for evaluation of psoriatic arthritis.She has history of Crohn's disease and psoriasis.Evaluatio n for Crohn's started in 2019 as she was having abdominal pain and chronic diarrhea. Did not have blood in stool. Formally diagnosed with Crohn's ~[phone]. Follows with GI.Prior therapies for this include Tremfya (helped with psoriasis and arthritis, but lost efficacy for Crohn's), Stelara (did not help Crohn's, but helped psoriasis), and currently on Skyrizi for the past 15 months (helpful for Crohn's, but not for psoriasis or arthritis).Has had psoriasis for 10+ years, affecting mostly legs and feet. Has had on elbows before.Was given topicals for psoriasis. Had been on Otezla before which seemed to help arthritis and psoriasis, then was stopped when started Tremfya.Arthritis has been more prominent in the past 6 months.Positive gel phenomenon in knees.Wrists, thumbs (right) are bothering her. Has been in a cast/splint since after elbow surgery (epicondylitis) recently, which has caused more pain.Left thumb, left elbow, right shoulder are also bothersome.Endorses morning stiffness in hands, maybe lasting 1 hour. Generally moving tends to help stiffness. Has not noticed swelling.Does not notice correlation between her diseases.No inflammatory back pain.No history of inflammatory eye disease.No history of recurrent infections, fevers.Son has psoriasis.Cannot take NSAID's due to history of bariatric surgery. Cannot do oral steroids due to gastric surgery. States she is only ok to get steroid injections.Has upcoming mammogram. Has scheduled colonoscopy soon.Has had painful mouth sores on hard palate; every other month.Denies any alopecia, pleuritic pain or shortness of breath, photosensitivity, dry eye or dry mouth, Raynaud's phenomenon. MAYO MERCHANT MD [address] [place], [address], [place] [facility] 06/13/2024 09:08:28 08/26/2024 text/html Reports to clini c with left leg/knee pain. Pt states that she was out of town to a graduation and she had a fall she was holding on to the rail and she stepped on a chiara step and turned the leg/knee and ankle. DOI: 08/24/24 CARLEY: stepped down on chiara stair that was missing Treatments: went to ER Found us via referred KANDY PEREIRA [address] [place], [address], [facility] 08/26/2024 09:41:18 OBGyn Episode No OBEpisode recorded.
--- OUTSIDE RECORDS SUMMARY | 2024-09-07 00:47 | XMS_ITS | Continuity of Care Document ---
Author Organization [facility], ORTHOPEDICS [address] [place] [address] Care Team Providers Care Razor Grinder Name Role Phone RADHA VILLELA Replanter VEDA ARRIETA Belt Cutter MAYO MERCHANT Layout Technician YUKI NEWTON Primary Care Provider [phone] RADHA DAVENPORT Primary Care Provider Assessment No assessment recorded. Plan of Treatment Reminders Order Date Submit Date Provider Last Modified By Organization Details Last Modified Time Details Appointments DERMATOLO GY VISIT 2024 09:45A Antony DUFFY DO Not available Not available Not available RECHECK 2024 02:40P Antony HOLLINS MD Not available Not available Not available DERMATOLO GY VISIT 2024 08:45A nAtony DUFFY DO Not available Not available Not available Lab None recorded. Referral None recorded. Procedures None recorded. Surgeries None recorded. Imaging None recorded. Medication Orders None recorded. Patient TargetsNo targets recorded. Patient Instructions Encounter Date Encounter Id Patient Instructions Last Modified By Organization Details Last Modified Time 08/26/2024 [id number] Will put in lace up brace and hinged knee with WBAT. Ice and elevate and no work for 4 weeks. cannot provide pain medicines as I am a PA but have requested she contact her PCP. Cannot take nsaids secondary to history of gastric bypass. [email or web address] Not available 08/26/2024 09:41:02 Reason for Referral None Reported. Problems Name Problem SNOMED Code Status Onset Date Resolution Date Notes Provider Name and Address Organization Details Recorded Time Diarrhea 65482051 Active 2015 From Automated Load;Provi bebe: Franklincricket, Kev;St atus: Active Not Available [facility] 7 07:13:55 Liver function tests outside reference range 855793164 Active 2015 From Automated Load;Provi bebe: Kev Hollins;St atus: Active Not Available [facility] 7 07:49:19 Hemorrhag e of rectum and anus 665508451 Active 2015 From Automated Load;Provi bebe: Tam, Kev;St atus: Active Not Available [facility] 7 08:18:33 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 511/509 VEDA ARRIETA MD [address] [place] [address], [address] , [facility] 09:34:23 Psoriasis vulgaris 312797226 Active 2014 From Automated Load;Provi bebe: Peewee Duffy;S tatus: Active Not Available [facility] 6 07:36:46 Psoriasis with arthropat hy Active 2014 From Automated Load;Provi bebe: Peewee Duffy;S tatus: Active Not Available [facility] 6 07:36:46 Epidermoi d cyst of skin 830530974 Active 2015 From Automated Load;Provi bebe: Peewee Duffy;S tatus: Active Not Available [facility] 6 07:36:46 Problem Notes None recorded. Procedures Surgical History Date Name Laterality Status Provider Name and Address Organization Details Recorded Time 024 OT Therapeutic Exercise completed RUTHIE VELASQUEZ JR, OTR/L, CHT [address] [place], [address], [facility] 12/26/2023 08:01:18 024 PT Hot/Cold Pack completed RUTHIE VELASQUEZ JR, OTR/L, CHT [address] [place], [address], [facility] 12/26/2023 08:01:18 024 OT Therapeutic Exercise completed RUTHIE VELASQUEZ JR, OTR/L, CHT [address] [place], [address], [facility] 12/13/2023 08:19:50 024 PT Hot/Cold Pack completed RUTHIE VELASQUEZ JR, OTR/L, CHT [address] [place], [address], [facility] 12/13/2023 08:02:25 024 Orthotic, WHO, Static Custom completed RUTHIE VELASQUEZ JR, OTR/L, CHT [address] [place], [address], [facility] 12/04/2023 14:18:42 024 OT Evaluation - Moderate complexity completed RUTHIE VELASQUEZ JR, OTR/L, CHT [address] [place], [address], [facility] 12/04/2023 14:18:27 024 OT Therapeutic Exercise completed RUTHIE VELASQUEZ JR, OTR/L, CHT [address] [place], [address], [facility] 12/04/2023 15:00:59 024 Op Note completed KELSEY VASQUEZ MD [address] [place], [address], [facility] 11/21/2023 12:52:53 024 PT Evaluation - Moderate Complexity cancelled TOM WANG, PT [address] [place], [address], [facility] 11/15/2023 09:36:27 024 PT Manual Therapy cancelled TOM WANG, PT [address] [place], [address], [facility] 11/15/2023 09:36:27 024 PT Therapeutic Exercise cancelled TOM WANG, PT [address] [place], [address], [facility] 11/15/2023 09:36:27 024 PT Evaluation - Moderate Complexity completed TOM WANG, PT [address] [place], [address], [facility] 11/13/2023 07:14:16 024 PT Manual Therapy completed TOM WANG, PT [address] [place], [address], [facility] 11/13/2023 08:15:38 024 PT Therapeutic Exercise completed TOM WANG, PT [address] [place], [address], [facility] 11/13/2023 07:14:28 023 Shave Lesion; trunk, arm, leg completed DILMA LAY MD [address] [place] [address], [address], [facility] 10/05/2022 17:36:13 022 OCT/Nerve completed VEDA ARRIETA MD [address] [place] [address], [address], [facility] 12/09/2021 15:02:53 022 Visual Field Extended completed VEDA ARRIETA MD [address] [place] [address], [address], [facility] 06/09/2021 15:37:33 021 bariatric operative procedure completed Blanca Boyer [facility] 06/09/2021 15:28:52 021 OCT/Nerve completed VEDA ARRIETA MD [address] [place] [address], [address], [facility] 11/16/2020 09:34:56 021 Pachymetry completed VEDA ARRIETA MD [address] [place] [address], [address], [facility] 11/16/2020 09:35:00 020 Biopsy Liver, percutaneous completed NAN BISHOP MD [address] [place] [address], [address], [facility] 03/27/2020 15:54:17 Endometrial cryoablation completed Darshana [facility] 08/27/2020 11:07:49 Hysterectomy/sandhya e vagina [facility] 08/27/2020 11:07:57 [facility] 08/27/2020 11:08:09 Other completed Kena Perdomo [facility] 12/15/2023 12:46:39 laparoscopy completed MAYO MERCHANT MD [address] [place] [address], [address], [facility] 12/15/2023 13:10:10 Imaging Results None recorded. Procedure Notes None recorded. Medical Equipment None Reported. Allergies Allergen ID Allergen Name Allergen Category Reaction Reaction Severity Criticality Documentation Date Start Date Code Code System Note Provider Name and Address Organization Details Recorded Time 546348 metformin medicatio n diarrhea severe Not available 08/27/2020 6809 RxNorm Darshanatiffany Lagunas [facility] 1 11:10:32 224903 Bactrim medicatio n Not available Not available Not available 08/10/2021 66734 9 RxNorm Ranjana Bower [facility] 2 09:07:56 Medications Name Sig Start Date Stop [...] completed Not Available Not Available Not Available sophie carrion DRIsaiahER 9 mg tablet,de layed and extended release [...] Updated DateTime 08/26/2024 170.18 cm 50.3 kg/m2 340016.15 g Sebastian Polanco [facility] 08/26/2024 09:18:13 Social History Question Answer Notes LastModified by Organizat ion Details LastModified Time Tobacco Smoking Status Former Smoker QUIT 10 YRS AGO Blanca myles, [facility] 11/16/2020 08:30:55 How Much Tobacco Do You Chew? None Information not available 08/27/2020 What Was The Date Of Your Most Recent Tobacco Screening? 06/13/2024 [email or web address] Information not available 06/13/2024 How Much Tobacco Do You Smoke? No Information not available 08/27/2020 How Many Years Have You Smoked Tobacco? 0 Information not available 08/27/2020 Sex: Unknown Functional Status Question Answer Note LastModified by Organizat ion Details LastModified Time What is your level of alcohol consumption? None Information not available 12/15/2023 Do you or [...] [email or web address] Not available 04/25 14:46:36 Father Glaucoma [email or web address] Not availab le 11/16/2020 08:29:30 Father Cataract [email or web address] Not availab le 11/16/2020 08:30:27 Father Fibrosis of lung idiopa thic pulmon bety fibros is [email or web address] Not available 12/15/2023 13:09:47 Mother No current problems or disability [email or web address] Not available 04/25 14:46:36 Maternal Grandmother Cataract [email or web address] Not available 08:30:27 Unspecified Relation Diabetes mellitus [email or web address] Not available 2023 13:09:21 Medical History Condition Response Coronary Artery Disease N Other N Kidney Stones N Hyperthyroidism N Heart Arrhythmia N Blood Transfusion N Emphysema N COPD N Depression N Pneumonia N Venereal Disease N Persistent cough or throat clearing > 3 weeks N Anxiety Disorder Y Autoimmune disease Y Hemorrhoids N Arthritis Y Blood Clot N Acid Reflux (GERD) Y Cancer N Melanoma N Stroke N Hoarseness N Polio N Skin Cancer [...] Illness or Injuries N Radiation Therapy N Bladder or Kidney Problems N Diphtheria N Alcohol Overuse/Alcohol Abuse N High Cholesterol Y Liver Disease Y Allergies/Hayfever N Mumps N Thyroid Problems N GI Problems Y Anemia N Chest Pain Y Immune System Disorder N Colon Polyps Y Heart Attack (NE) N Diabetes N Seizures/Epilepsy N Scarlet Fever N Eye Trauma N Heart Murmur Y Eczema N Double Vision N Ocular trauma N Basal Cell Carcinoma N Heart Disease N Bronchitis N Hypertension N Gynecological HistoryNo gynecological history recorded. Obstetrics History GPAL:G 0 P 0 0 0 0 Immunizations Vaccine Type Date Status Note Provider Nam e and Address Organization Details Recorded Time COVID-19, mRNA, LNP-S, PF, 30 mcg/0.3 mL dose 07/01/2020 completed Darshana Lagunas [facility] 02/17/2021 09:01:09 COVID-19, mRNA, LNP-S, PF, 30 mcg/0.3 mL dose 07/29/2020 completed Darshanatiffany Lagunas [facility] 02/17/2021 09:01:14 Past Encounters Encounter ID Performer Location Encounter Start Date Encounter Closed Date Diagnosis/Indication Diagnosis SNOMED-CT Code Diagnosis ICD10 Code Diagnosis Note [id number] K[facility]Y PEREIRA [facility] [address] [place] [address] 08/26/2024 08:27:59 08/26/2024 10:01:00 Closed fracture of upper end of fibula 09707059 S82.812A Sprain of tibiofibular ligament of left ankle 3903478376 8090672 S93.432A Instabilit y of joint of left ankle 8439533571 277436 M25.372 Health Concerns Section Related Observation LastModified by Organization Detai ls LastModified Time None Recorded Concern Status LastModified by Organization Details LastModified Time None Recorded Payers Encounter Date Sequence Insurance Name Policy Number Policy Azul Covered Member ID Azul Member ID Guarantor Name 08/26/2024 1 [place] [id number] 1 Marleni Montanez [id number] Marleni Montanez Notes Date Note Type Note Provider Name and Address Organization Details Recorded Time 08/26/2024 text/html Reports to maryanne padilla with left leg/knee pain. Pt states that she was out of town to a graduation and she had a fall she was holding on to the rail and she stepped on a chiara step and turned the leg/knee and ankle. DOI: 08/24/24 CARLEY: stepped down on chiara stair that was missing Treatments: went to ER Found us via referred KANDY PEREIRA [address] [place], [address], [facility] 08/26/2024 09:41:18 OBGyn Episode No OBEpisode recorded.
[2024-09-07 01:24] LABS: Basophils % 0.2 % (0.1-2.0); Eosinophils % 0.2 % (0.1-12.0); Hematocrit 31.2 % (37.0-47.0); Hemoglobin 10.6 g/dL (12.2-16.2); Immature Granulocytes # 0.02 10^3uL; Immature Granulocytes % 0.3 %; Lymphocytes # 3.5 K/mm3 (0.7-4.5); Lymphocytes % 58.1 % (10-50); Mean Corpuscular Hemoglobin 32.1 pg (27.0-31.2); Mean Corpuscular Volume 94.5 fl (81-99); Mean Platelet Volume 9.9 fl (7.4-10.4); Monocytes # 0.5 K/mm3 (0.1-1.0); Monocytes % 8.4 % (1.7-9.3); Neutrophils % 32.8 % (37.0-80.0); Nucleated Red Blood Cells # 0 10^3/uL; Nucleated Red Blood Cells % 0 %; Platelet Count 198 K/mm3 (142-424); Red Cell Distribution Width 14.9 % (11.5-17.5); Red Cell Distribution Width-SD 51.7 fL
[2024-09-07 01:33] LABS: Albumin Level 4.3 g/dl (3.5-5.0); Chloride 108 mmol/L (98-107); Potassium 3.8 mmoL/L (3.5-5.1); Sodium 139 mmol/L (136-145)
[2024-09-07 01:36] LABS: Alanine Aminotransferase 46 U/L (12-78); Alkaline Phosphatase 84 U/L (38-126); Anion Gap 7.8 mEq/L (5-15); Aspartate Amino Transferase 51 U/L (14-36); Bilirubin,Total 0.3 mg/dl (0.2-1.3); Blood Urea Nitrogen 17 mg/dl (7-17); Calcium 9.2 mg/dl (8.4-10.2); Carbon Dioxide 27 mmol/L (22.0-30.0); Creatinine Clearance Estimated 173 mL/min (50-200); Estimated Glomerular Filt Rate 105 ml/min (>60); GFR (African American) 127 ML/MIN (>60); Globulin 2.1 g/dL (1.3-3.2); Glucose 99 mg/dl (74-100); Total Protein,Serum 6.4 g/dl (6.3-8.2)
[2024-09-07 01:45] LABS: NT Pro Brain Natriuretic Pep. 139 pg/mL (0-125)
[2024-09-07 02:16] LABS: D-Dimer 0.73 ug/mL (0.0-0.5)
--- NOTE | 2024-09-07 02:16 | HMH.EDGENADL ---
Discharge Plan Disposition Patient Disposition: Home, Self-Care Condition: Good Prescriptions Prescriptions: New apixaban 5 mg tablet 5 mg PO BID 90 Days Qty: 194 0RF Rx Instructions: Take 2 tablets (10mg) by mouth twice daily for 7 days. Then take 1 tablet (5mg) by mouth twice daily for the remaining duration. No Action lamotrigine 200 mg tablet 200 mg PO BID Patient Comments: TAKE 1 TABLET BY MOUTH TWICE DAILY oxcarbazepine 300 mg tablet 300 mg PO DAILY fluoxetine 20 mg capsule 20 mg PO BID Patient Comments: TAKE 1 CAPSULE BY MOUTH TWICE DAILY amitriptyline 100 mg tablet 100 mg PO DAILY Patient Comments: TAKE 1 TABLET BY MOUTH ONCE DAILY rosuvastatin 20 mg tablet 20 mg PO DAILY Patient Comments: TAKE 1 TABLET BY MOUTH ONCE DAILY AT BEDTIME Vivitrol 380 mg suspension,extended rel recon See Rx Instructions .ROUTE .COMPLEX Patient Comments: Inject 380 mg every 4 weeks by intramuscular route for 28 days. Rx Instructions: Inject 380 mg every 4 weeks by intramuscular route for 28 days. Skyrizi 360 mg/2.4 mL (150 mg/mL) wearable injector See Rx Instructions .ROUTE .COMPLEX Rx Instructions: see rx instructions rizatriptan 10 mg tablet See Rx Instructions .ROUTE .COMPLEX Rx Instructions: see rx instruction amoxicillin 875 mg tablet 875 mg PO Q12H Qty: 20 0RF meclizine 25 mg tablet 25 mg PO QID PRN (Reason: dizziness) Qty: 30 0RF Referrals Follow up/Referrals: Janene Muller PA [Primary Care Provider, Medical] - See instructions Referral Note: Patient seen in ER for right leg swelling, possible DVT, please follow-up outpatient DVT ultrasound results and direct patient on the use of the apixaban which has already been prescribed and started. 90 day prescription was provided but based on the Doppler results may not need to be continued. Please advise patient based on results. Activity Restrictions/Add. Instructions Additional Instructions/Restrictions: You were evaluated in the ER and are believed to be appropriate for discharge at this time. Take the newly prescribed Eliquis (apixaban) as directed. For the first 7 days you will take 10 mg (2 tablets) by mouth twice daily. After the first 7 days, you will take 5 mg (1 tablet) by mouth twice daily for the duration of the medication. Go for your DVT ultrasound as soon as they call you for an appointment. Bring the order sheet that we gave you with you to that appointment. Immediately call your primary care doctor with the results of your DVT ultrasound for directions on what to do with the remaining apixaban prescription. Call your primary care doctor for close follow-up as well. Return to the ER with any new, worsening, or otherwise concerning symptoms. Clinical Impressions Clinical Impression: Localized swelling of right lower extremity Print Language Print Language: Indonesian Discharge ED Provider: Elisa Leos General Adult HPI General Chief complaint: Extremity Injury, Lower Stated complaint: Swelling right lower leg Time Seen by Provider: 09/07/24 00:48 Mode of Arrival: Ambulatory Source of Information: Patient Description of Symptoms (Recalled from ER Triage Doc. by RN): Patient fell and broke left tibia; is having some swelling on the right side History of Present Illness HPI narrative: 56-year-old female presents to the ER with right lower extremity swelling. Patient reports she fell and broke her left lower extremity approximately 2 weeks ago. In the last few days she has had swelling of the right lower extremity that seems to be worse at the end of the day. She reports no pain associated with it and no known injury to the right side. Patient has no history of blood clot. She has no redness, heat, or tenderness. Patient denies chest pain or difficulty breathing, no dizziness or headache, no numbness, tingling, or weakness. No abdominal pain, nausea, vomiting, or diarrhea. No other complaints or concerns. Related Data Home Medications ?Medication ?Instructions ?Recorded ?Confirmed amitriptyline 100 mg tablet 100 mg PO DAILY 10/14/23 10/14/23 fluoxetine 20 mg capsule 20 mg PO BID 10/14/23 10/14/23 lamotrigine 200 mg tablet 200 mg PO BID 10/14/23 10/14/23 naltrexone microspheres 380 mg See Rx Instructions .Route .COMPLEX 10/14/23 10/14/23 intramuscular suspension,extended release (Vivitrol) oxcarbazepine 300 mg tablet 300 mg PO DAILY 10/14/23 10/14/23 risankizumab-rzaa 360 mg/2.4 mL See Rx Instructions .Route .COMPLEX 10/14/23 10/14/23 (150 mg/mL) subcut wearable injector (Gabbyyrkhari) rizatriptan 10 mg tablet See Rx Instructions .Route .COMPLEX 10/14/23 10/14/23 rosuvastatin 20 mg tablet 20 mg PO DAILY 10/14/23 10/14/23 Previous Rx's ?Medication ?Instructions ?Recorded amoxicillin 875 mg tablet 875 mg PO Q12H #20 tabs 10/14/23 meclizine 25 mg tablet 25 mg PO QID PRN dizziness #30 tabs 10/14/23 apixaban 5 mg tablet 5 mg PO BID 90 days #194 tabs 09/07/24 Allergies Allergy/AdvReac Type Severity Reaction Status Date / Time sulfamethoxazole (From Allergy Verified 10/14/23 15:50 Bactrim) trimethoprim (From Bactrim) Allergy Verified 10/14/23 15:50 PFSH PFS Disclaimer: The information contained in this section may have been updated after the patient was seen, as this information can be updated by other users. Social History (Updated 10/15/23 @ 18:21 by Ac Vasquez APRN) Smoking Status: Current every day smoker alcohol intake: never current occupational status: other Travel in the last 8 weeks?: None Have you lived/traveled outside [place] in past 30 days?: No Contact w/someone who lives/traveled outside [place] past 30 days?: No Exposure to someone with infectious disease in past 14 days?: No Do you have a fever (greater than 100.4 F or 38 C)?: No Have you tested positive for COVID-19?: No Exposed to someone with COVID-19 in past 14 days?: No Do you have a sore throat?: No Do you have a cough?: No Do you have any weakness?: No Do you have any diarrhea?: No Are you experiencing any unusual bleeding?: No Do you have any muscle aches/pain?: No Do you have any abdominal pain?: No Are you experiencing loss of taste or smell?: No ROS Obtained: Yes Systems reviewed as appropriate & no additional complaints except as documented Per HPI Physical Exam General General appearance: alert and in no apparent distress Head Head exam: atraumatic and normocephalic Eye Eye exam: Present PERRL and EOMI ENT ENT exam: Present mucous membranes moist Neck Neck exam: Present normal inspection and full ROM Chest Chest inspection: Present symmetric chest wall rise Respiratory Respiratory exam: Present normal lung sounds bilaterally; Absent respiratory distress, wheezes or stridor Cardiovascular Cardiovascular exam: Present regular rate and normal rhythm Abdominal Exam Abdominal exam: Present soft; Absent distention or tenderness Extremities Exam Extremities exam: Present full ROM, edema (Right lower extremity +1 edema distal to the knee, no evidence of traumatic injury, no deformity or tenderness) and other (Walking boot on left lower extremity secondary to previously known injury; neurovascularly intact throughout); Absent joint swelling or calf tenderness Neurological Exam Neurological exam: Present alert and oriented X3; Absent motor sensory deficit Psychiatric Psychiatric exam: Present normal affect and normal mood Skin Skin exam: Present warm and dry Medical Decision Making Medical Records Screening: Per USPSTF and CDC recommendations, given the prevalence of disease in our region, it is our hospital?s policy to screen for HIV and viral Hepatitis for all patients aged 18 and over and those with ongoing risk factors. Josh Inquiry Pt receiving controlled substance: No Vital Signs: 09/07/24 00:50 09/07/24 00:50 09/07/24 01:00 Temperature 98.1 F Temperature Source Oral Pulse Rate 86 86 Pulse Rate [Right Radial] 86 Respiratory Rate 16 Blood Pressure 134/69 160/81 H Blood Pressure [Right Arm] 134/69 Blood Pressure Mean 104 Blood Pressure Mean [Right Arm] 90 Blood Pressure Source Blood Pressure Source [Right Arm] Automatic Cuff Blood Pressure Position Blood Pressure Position [Right Arm] Supine 02 Sat by Pulse Oximetry 100 98 98 Oxygen Delivery Method Room Air 09/07/24 01:12 09/07/24 01:31 09/07/24 02:01 Temperature Temperature Source Pulse Rate 90 88 86 Pulse Rate [Right Radial] Respiratory Rate Blood Pressure 150/75 H 162/66 H 176/88 H Blood Pressure [Right Arm] Blood Pressure Mean Blood Pressure Mean [Right Arm] Blood Pressure Source Blood Pressure Source [Right Arm] Blood Pressure Position Blood Pressure Position [Right Arm] 02 Sat by Pulse Oximetry 98 96 95 Oxygen Delivery Method 09/07/24 02:31 09/07/24 03:10 Temperature 97.9 F Temperature Source Oral Pulse Rate 83 95 H Pulse Rate [Right Radial] Respiratory Rate 16 Blood Pressure 138/59 L 138/59 L Blood Pressure [Right Arm] Blood Pressure Mean Blood Pressure Mean [Right Arm] Blood Pressure Source Automatic Cuff Blood Pressure Source [Right Arm] Blood Pressure Position Supine Blood Pressure Position [Right Arm] 02 Sat by Pulse Oximetry 98 Oxygen Delivery Method Room Air Lab Data Lab Results 09/07/24 01:16: WBC 6.0, RBC 3.30 L, Hgb 10.6 L, Hct 31.2 L, MCV 94.5, MCH 32.1 H, MCHC 34.0, RDW 14.9, Plt Count 198, MPV 9.9, Neut % (Auto) 32.8 L, Lymph % (Auto) 58.1 H, Moca % (Auto) 8.4, Eos % (Auto) 0.2, Baso % (Auto) 0.2, Neut # (Auto) 2.0, Lymph # (Auto) 3.5, Moca # (Auto) 0.5, Eos # (Auto) 0.0, Baso # (Auto) 0.0, D-Dimer 0.73 H, Sodium 139, Potassium 3.8, Chloride 108 H, Carbon Dioxide 27, Anion Gap 7.8, BUN 17, Creatinine 0.60, Estimated Creat Clear 173, Estimated GFR 105, Est GFR ( Amer) 127, Glucose 99, Calcium 9.2, Total Bilirubin 0.3, AST 51 H, ALT 46, Alkaline Phosphatase 84, NT-Pro-B Natriuret Pep 139 H, Total Protein 6.4, Albumin 4.3, Globulin 2.1, Albumin/Globulin Ratio 2.0 H 09/07/24 01:16 09/07/24 01:16 Orders (Tests/Meds): ED MEDICATIONS Discontinued Medications Generic Name Dose Route Start Last Admin Trade Name Freq PRN Reason Stop Dose Admin Apixaban 10 mg 09/07/24 09:00 09/07/24 03:14 Apixaban 5mg Tablet PO 10/07/24 08:59 10 mg BID BLADE Administration ORDERS Category Date Time Status Consult to Case Management [CONS] Routine Cons 09/07/24 03:05 Active POCUS Point of Care (ER Only) Stat Exams 09/07/24 00:48 Completed BNP [NT Pro Brain Natriuretic Pep.] Stat Lab 09/07/24 01:16 Completed CBC w/Auto Diff [Complete Blood Count Auto Diff] Stat Lab 09/07/24 01:16 Completed CMP [Comprehensive Metabolic Panel] Stat Lab 09/07/24 01:16 Completed D-Dimer Stat Lab 09/07/24 01:16 Completed Medical Decision Narrative: In summary, this 54-year-old female with comorbidities described in the HPI presents to the emergency department today with right lower leg swelling with no known injury. On initial evaluation patient is hemodynamically stable, afebrile, there is swelling of the right lower extremity without redness, no tender palpable cord, no heat, no pain or evidence of trauma. Differential diagnosis includes but is not limited to DVT, fluid overload, swelling secondary to injury on the opposite side causing compensation with the right leg, also consider the possibility of lymphedema. I am reassured that patient has no chest pain or difficulty breathing, no history of DVT, no redness, heat, or tender palpable cord. Based on these concerns, I ordered basic serum labs including D-dimer, [id number] ultrasound of right lower extremity was also performed by me and personally interpreted and does not demonstrate evidence of DVT within the imaged vessels. Labs personally reviewed demonstrate no leukocytosis, mild anemia is present but nonactionable, platelets normal, CMP nonactionable, BNP slightly elevated at 139 which could be contributing to patient's right lower extremity swelling however her lungs are clear, saturating well on room air, no chest pain or difficulty breathing so I have low suspicion for CHF causing fluid overload especially since patient has no cardiac history and no other associated clinical symptoms. D-dimer elevated at 0.73. Despite patient having no evidence of DVT on my [id number] ultrasound with her D-dimer being elevated at 0.73, I believe it is safest for the patient to be treated with oral anticoagulation for DVT at this time until formal Doppler ultrasound can be performed. I discussed this with the patient. She is low risk for bleeding (HASBLED 0). I recommended treatment with apixaban. Patient agreeable to this. I administered a dose of apixaban in the ER and prescribed apixaban for outpatient management. Patient was provided DVT ultrasound outpatient order and this was also sent to echo lab. Additionally case management consult was placed and linen room houseperson notified to consult case management in the morning to facilitate precertification and expedite patient's DVT ultrasound. Patient was given instructions on use of anticoagulation as well as counseling and education about the risk of anticoagulants including easy bleeding and bruising and increased risk of intracranial bleed even with minor trauma. She was given explicit instructions about how to manage these situations. She was given explicit instructions on follow-up for DVT ultrasound as well to follow-up very closely with her primary care doctor and to discuss the results of the DVT ultrasound with her PCP for guidance on continuation or discontinuation of the apixaban based on results. I also sent a note to Janene Muller, patient's PCP regarding this. Patient is appropriate for discharge at this time. Patient was given instructions on symptomatic management, follow up instructions, and return precautions for the emergency department. Patient indicated understanding and was discharged in stable condition. Procedures Miscellaneous Procedure Procedure Performed: Limited DVT ultrasound Indication: Limited compression ultrasonography of the right lower extremity was performed to evaluate for non-compressibility of the deep veins in the patient. The ultrasound was performed with the following indications, as noted in the H&P: Distal right lower extremity swelling Identified structures: Right [common femoral vein, femoral vein, popliteal vein were examined.] Findings: Lower Extremity: Right CFV: Good compressibility Right FV: Good compressibility Right Popliteal vein: Good compressibility Impression: Normal, no evidence of DVT in the right lower extremity Images were saved to permanent archive The study was technically adequate CPT: 51271-30-JA 19062-27-XL 26178-78 (complete bilateral study) This study was performed by me, and I personally interpreted all images/videos. Based on my clinical judgement, these images were adequate and did not necessitate further imaging. Critical Care Critical Care Time Critical Care Time: No
[2024-09-07] MEDS: APIXABAN 5MG TABLET 10 MG PO (03:14)
== END 2024-09-07 03:19 | disposition home or self-care (01) ==
PROVIDERS: Emergency Provider Emergency Medicine; PCP Physician Assistant
DX: R22.41 Localized swelling, mass and lump, right lower limb (principal)
CPT/HCPCS: 80053; 83880; 85025; 85378; 99284

== ENCOUNTER 2024-09-07 11:46 | Outpatient (CLI) | payer BC, SELFPAY ==
--- NOTE | 2024-09-07 11:52 | CA_ITS ---
FINAL REPORT CLINICAL HISTORY: RLE SWELLING X 2 DAYS,PT BROKE LEFT LEG 2 WKS AGO FINDINGS: DUPLEX VENOUS SONOGRAPHY OF THE RIGHT LOWER EXTREMITY Multiple transverse and longitudinal scans were performed of the femoropopliteal deep venous system, with augmentation and compression maneuvers. FINDINGS: Normal phasic flow was noted in the visualized deep venous system. No intraluminal increased echogenicity is noted to suggest thrombus. There is normal compression and augmentation of the venous structures. No abnormal venous collaterals are seen. IMPRESSION: No evidence of deep venous thrombosis or SVT of the right lower extremity. Reviewed, Interpreted and Dictated by Stacie Courtney MD Transcribed by Ines Espinoza Authenticated and [facility]
== END 2024-09-07 23:59 | disposition home or self-care (01) ==
LOC: RAD 11:50 → RT 11:52
PROVIDERS: PCP Physician Assistant; Visit Provider Emergency Medicine
DX: S82.92XA Unspecified fracture of left lower leg, initial encounter for closed fracture (principal); R22.41 Localized swelling, mass and lump, right lower limb
CPT/HCPCS: 93971